=== PATIENT | male | born 1990 | race Caucasian/White ===

== ENCOUNTER 2017-04-23 22:00 | Emergency (ER) | payer SELFPAY ==
[~2017-04-23] VITALS: Ht 172.7 cm; Wt 77.2 kg
[2017-04-23 22:29] VITALS: BP 165/117
[2017-04-23 23:09] LABS: BASO # 0.1 x10^3/uL (0.0-0.2); BASO % 1 % (0-3); EOS # 0.1 x10^3/uL (0.0-0.7); EOS % 1 % (0-3); HEMOGLOBIN 15.7 g/dL (13.0-17.5); LYMPH % 31 % (24-48); MEAN CORPUSCULAR HEMOGLOBIN 29 pg (25-35); MEAN CORPUSCULAR HGB CONC 35 g/dL (31-37); MEAN CORPUSCULAR VOLUME 84 fL (79-100); MONO # 0.7 x10^3/uL (0.0-1.1); MONO % 6 % (0-9); NEUT # 8.1 x10^3uL (1.8-7.7); NEUT % 62 % (31-73); PLATELET COUNT 268 x10^3/uL (140-400); RED BLOOD COUNT 5.33 x10^6/uL (4.30-5.70); RED CELL DISTRIBUTION WIDTH 13.6 % (11.5-14.5)
[2017-04-23 23:16] LABS: CALCIUM 9.1 mg/dL (8.5-10.1); CREATININE 0.9 mg/dL (0.7-1.3)
[2017-04-23] MEDS ORDERED: METHADONE 5 MG TABLET. PO ONE (23:30)
[2017-04-23 23:43] LABS: BILIRUBIN,URINE NEG (NEG); CLARITY,URINE CLEAR; COLOR,URINE YELLOW; GLUCOSE,URINE NEG (NEG); NITRITE,URINE NEG (NEG); UROBILINOGEN,URINE 0.2 mg/dL (0.2 mg/dL)
[2017-04-23 23:44] LABS: AMPHETAMINE/METHAMPHETAMINE NEG (NEG); BACTERIA,URINE 0 /HPF (0-FEW); BARBITURATES NEG (NEG); BENZODIAZEPINES NEG (NEG); CANNABINOIDS NEG (NEG); COCAINE NEG (NEG); METHADONE NEG (NEG); OPIATES NEG (NEG); PHENCYCLIDINE NEG (NEG); RBC,URINE OCC /HPF (0-2); WBC,URINE OCC /HPF (0-4)
[2017-04-23] MEDS ORDERED: ONDA4TAB7 PO (23:58)
[2017-04-24] MEDS ORDERED: ONDANSETRON PF 4 MG/2 ML VIAL. IV ONE (00:15)
[2017-04-24] MEDS ORDERED: ONDANSETRON 4MG ODT 4TABLET STARTPACK. PO ONE (00:30)
--- NOTE | 2017-04-24 02:18 | ED.ADGEN ---
Past History Past Medical History: Other Alcohol Use: None Drug Use: None Adult General HPI HPI Patient is a 26-year-old man, history of prescription opiate abuse, who was in a methadone program for 1 year, and receiving 180 mg of methadone daily, who stopped taking his methadone 10 days ago when he moved to [place] from [place]. Patient presents with a complaint "withdrawal", states he is experiencing shaking chills, nausea and vomiting, diarrhea, generalized malaise. He has not taken any other medications or ingestions since his loss of methadone 10 days ago. He denies any other complaints, any injuries. Review of Systems Review of Systems Constitutional: Denies fever, complaining of chills and generalized malaise. Eyes: Denies change in visual acuity, redness, or eye pain [] HENT: Denies nasal congestion or sore throat [] Respiratory: Denies cough or shortness of breath [] Cardiovascular: No additional information not addressed in HPI [] GI: Abdominal pain, nausea, vomiting, diarrhea, no bloody stools. : Denies dysuria or hematuria [] Musculoskeletal: Denies back pain or joint pain [] Integument: Denies rash or skin lesions [] Neurologic: Denies headache, focal weakness or sensory changes [] Endocrine: Denies polyuria or polydipsia [] Current Medications Current Medications Current Medications Medications (Trade) Dose Ordered Sig/Sukh Start Time Stop Time Status Last Admin Dose Admin Methadone HCl (Dolophine) 60 mg 1X ONCE 04/23/17 23:30 04/23/17 23:31 DC Ondansetron HCl (Starter Pack - Zofran Odt) 1 startpack 1X ONCE 04/24/17 00:30 04/24/17 00:30 DC 04/24/17 00:17 1 STARTPACK Ondansetron HCl (Zofran) 4 mg 1X ONCE 04/24/17 00:15 04/24/17 00:16 DC 04/24/17 00:06 4 MG Allergies Allergies Allergies Coded Allergies Type Severity Reaction Last Updated Verified Penicillins Allergy Unknown 04/23/17 Yes amoxicillin Allergy Unknown 04/23/17 Yes azithromycin Allergy Unknown 04/23/17 Yes promethazine Allergy Unknown 04/23/17 Yes Physical Exam Physical Exam Constitutional: Well developed, well nourished, no acute distress, non-toxic appearance. [] HENT: Normocephalic, atraumatic, bilateral external ears normal, oropharynx moist, no oral exudates, nose normal. [] Eyes: PERRLA, EOMI, conjunctiva normal, no discharge. [] Neck: Normal range of motion, no tenderness, supple, no stridor. [] Cardiovascular:Heart rate regular rhythm, no murmur, S1, S2, rubs or gallops. [] Lungs & Thorax: Bilateral breath sounds clear to auscultation, no wheezing, rhonchi, rales. No chest or crepitus or tenderness. [] Abdomen: Bowel sounds normal, soft, mild tenderness in the epigastric region, no rebound, rigidity, no guarding, no masses, no pulsatile masses. [] Skin: Warm, dry, no erythema, no rash. [] Back: No tenderness, no CVA tenderness. [] Extremities: No tenderness, no cyanosis, no clubbing, ROM intact, no edema. Negative Homans sign. [] Neurologic: Alert and oriented X 3, normal motor function, normal sensory function, no focal deficits noted. [] Psychologic: Affect normal, judgement normal, mood normal. [] Current Patient Data Vital Signs Vital Signs Date Time Temp Pulse Resp B/P (MAP) Pulse Ox O2 Delivery O2 Flow Rate FiO2 04/23/17 22:29 98.6 99 20 97 Room Air Lab Results Laboratory Tests Test 04/23/17 22:50 04/23/17 23:16 White Blood Count 13.0 x10^3/uL (4.0-11.0) H Red Blood Count 5.33 x10^6/uL (4.30-5.70) Hemoglobin 15.7 g/dL (13.0-17.5) Hematocrit 45.0 % (39.0-53.0) Mean Corpuscular Volume 84 fL (79-100) Mean Corpuscular Hemoglobin 29 pg (25-35) Mean Corpuscular Hemoglobin Concent 35 g/dL (31-37) Red Cell Distribution Width 13.6 % (11.5-14.5) Platelet Count 268 x10^3/uL (140-400) Neutrophils (%) (Auto) 62 % (31-73) Lymphocytes (%) (Auto) 31 % (24-48) Monocytes (%) (Auto) 6 % (0-9) Eosinophils (%) (Auto) 1 % (0-3) Basophils (%) (Auto) 1 % (0-3) Neutrophils # (Auto) 8.1 x10^3uL (1.8-7.7) H Lymphocytes # (Auto) 4.0 x10^3/uL (1.0-4.8) Monocytes # (Auto) 0.7 x10^3/uL (0.0-1.1) Eosinophils # (Auto) 0.1 x10^3/uL (0.0-0.7) Basophils # (Auto) 0.1 x10^3/uL (0.0-0.2) Sodium Level 142 mmol/L (136-145) Potassium Level 4.0 mmol/L (3.5-5.1) Chloride Level 105 mmol/L (98-107) Carbon Dioxide Level 28 mmol/L (21-32) Anion Gap 9 (6-14) Blood Urea Nitrogen 12 mg/dL (8-26) Creatinine 0.9 mg/dL (0.7-1.3) Estimated GFR (Cockcroft-Gault) 102.0 Glucose Level 97 mg/dL (70-99) Calcium Level 9.1 mg/dL (8.5-10.1) Urine Collection Type Unknown Urine Color Yellow Urine Clarity Clear Urine pH 6.0 Urine Specific [place] >=1.030 Urine Protein Trace (NEG-TRACE) Urine Glucose (UA) Neg mg/dL (NEG) Urine Ketones (Stick) Neg mg/dL (NEG) Urine Blood Trace (NEG) Urine Nitrite Neg (NEG) Urine Bilirubin Neg (NEG) Urine Urobilinogen Dipstick 0.2 mg/dL (0.2 mg/dL) Urine Leukocyte Esterase Neg (NEG) Urine RBC Occ /HPF (0-2) Urine WBC Occ /HPF (0-4) Urine Squamous Epithelial Cells None /LPF Urine Bacteria 0 /HPF (0-FEW) Urine Opiates Screen Neg (NEG) Urine Methadone Screen Neg (NEG) Urine Barbiturates Neg (NEG) Urine Phencyclidine Screen Neg (NEG) Urine Amphetamine/Methamphetamine Neg (NEG) Urine Benzodiazepines Screen Neg (NEG) Urine Cocaine Screen Neg (NEG) Urine Cannabinoids Screen Neg (NEG) Urine Ethyl Alcohol Neg (NEG) EKG EKG Not indicated. Radiology/Procedures Radiology/Procedures Not indicated.[] Course & Med Decision Making Course & Med Decision Making Pertinent Labs and Imaging studies reviewed. (See chart for details) I did discuss methadone treatment options with patient, including referral to [facility] , where a methadone clinic is available where he would be able to be seen tomorrow morning. Also discussed dosing with methadone in the ED, after discussion with pharmacist Taqueria, recommendation is for the patient's dose of 180 daily milligrams to be decreased to 60 mg, due to the fact the patient has not had any methadone for the past 10 days. This was ordered, however upon further discussion with patient he states that he does not want to take any additional methadone, and he is not looking to be enrolled in another methadone program, he would like to "quit cold turkey on my own". He denies any neurologic complaints, states "my head feels clearer than it has for years". Patient states that he had been using a methadone clinic and upping his dosages , to the point were "I was half asleep and out of it all the time". He states he is afraid this will happen again if he is reenrolled in a methadone program. I discussed with patient that due to the biochemical changes, he will continue to experience withdrawal symptoms for some time, possibly several weeks. Patient states that he understands this will happen, but he does not wish to take anymore methadone or other treatment at this time. Patient was agreeable to receiving laboratory studies in the ED, as he states he has been experiencing emesis and diarrhea, laboratory studies revealed all electrolytes within normal limits, without any concerning findings identified. Patient's vital signs within normal limits as well, and he is well-appearing, with no emesis in the ED. After lengthy discussion regarding potential treatment options and patient's plan, patient is requesting Zofran, he states that this time he is only able to keep liquids down, he states that he will continue on the course without any additional methadone treatment of this time, and will return to the ED if any concerning symptoms develop. Patient received a dose of Zofran in the ED, is tolerating by mouth fluids, discharged with a starter pack and a Zofran prescription for Zofran, and addition was given contact information for [facility] in case he changes his mind, the number is [phone], along with clear and detailed return instructions and precautions. Patient voiced understanding and agreement with plan as stated, along with precautions, discharged home in stable condition with significant other with plan as above. Final Impression Final Impression [] Problems: Dragon Disclaimer Dragon Disclaimer This electronic medical record was generated, in whole or in part, using a voice recognition dictation system. Departure: Impression: Primary Impression: Methadone withdrawal Disposition: HOME, SELF-CARE Condition: IMPROVED Scripts Ondansetron Hcl (ZOFRAN) 4 Mg Tablet 4 MG PO PRN Q8HRS Y for NAUSEA, #14 Prov: KIMMY GILL DO 04/23/17 KIMMY GILL DO Apr 24, 2017 02:18
== END 2017-04-24 00:19 | disposition home or self-care (01) ==
LOC: ER 22:00
DX: F15.93 Other stimulant use, unspecified with withdrawal (principal); Z88.0 Allergy status to penicillin; Z88.1 Allergy status to other antibiotic agents; Z88.4 Allergy status to anesthetic agent
CPT/HCPCS: 36415; 80048; 80307; 81001; 85025; 96374; 99284; J2405; Q0162; G0479

== ENCOUNTER 2017-04-25 09:43 | Emergency (ER) | payer SELFPAY ==
[~2017-04-25] VITALS: Ht 172.7 cm; Wt 77.2 kg
[~2017-04-25 09:43] MED LIST: ONDA4TAB7 PO
[2017-04-25 09:55] VITALS: BP 164/86
--- NOTE | 2017-04-25 10:25 | PHYS DOC ---
General Chief Complaint: WITHDRAWL Stated Complaint: N/V; METHADONE W/DRAWAL Time Seen by MD: 09:50 Source: patient, old records Exam Limitations: no limitations Problems: History of Present Illness Initial Comments Patient is a 26-year-old man, history of prescription opiate abuse, who was in a methadone program for 1 year, and receiving 180 mg of methadone daily, who stopped taking his methadone 12 days ago when he moved to [place] from [place]. Patient presents with a complaint "withdrawal", states he is experiencing shaking chills, nausea and vomiting, diarrhea, generalized malaise. He has not taken any other medications or ingestions since his loss of methadone 10 days ago. He denies any other complaints, any injuries. Patient was seen here on April 23 for similar symptoms. At that time the patient refused to reduce dose of methadone, labs and urine studies were evaluated and the patient felt slightly better with fluids and Zofran. Patient refused to methadone on that day but has returned stating that he is still unable to sleep and has by mouth intolerance despite taking Zofran. He denies chest pain trouble breathing headache or focal neurologic deficit, no new symptoms from his last ED visit. He is requesting the decreased dose offered 2 days ago and states he will present to the methadone clinic as he was previously advised. Patient understands that this is a one-time offer, if he received the medication today and does not follow up the methadone clinic no further opiates will be prescribed to this patient in the ED unless deemed absolutely necessary and emergent by the attending physician. ED note from April 23 [facility] emergency department encounter reviewed by me in detail. ED vital signs are stable blood pressure improved from 2 days ago, heart rate 104 bpm patient is nervous and smoked a cigarette immediately prior to being seen. Patient states that "I killed my best friend in high school drinking and driving " and I don't touch alcohol. When I turn 18 I began using PCP and prescription opiates. I attend AA meetings Timing/Duration: getting worse Severity: severe Modifying Factors: improves with medication Associated Symptoms: malaise, nausea/vomiting, weakness Allergies: Coded Allergies: Penicillins (Verified Allergy, Unknown, 04/23/17) amoxicillin (Verified Allergy, Unknown, 04/23/17) azithromycin (Verified Allergy, Unknown, 04/23/17) promethazine (Verified Allergy, Unknown, 04/23/17) Past Medical History Medical History: other (opiate dependence) Surgical History: noncontributory Social History Smoker: cigarettes Alcohol: none Drugs: other (opiates) Review of Systems Constitutional: denies chills, diaphoresis, denies fever, malaise, weakness Respiratory: denies cough, denies shortness of breath, denies wheezing Cardiovascular: denies chest pain, denies palpitations, denies syncope Gastrointestinal: see HPI Genitourinary: denies dysuria, denies frequency, denies hematuria Musculoskeletal: denies joint swelling, denies muscle stiffness, denies neck pain Psychiatric/Neurological: denies headache, denies numbness, denies paresthesia , denies seizure, denies weakness Hematologic/Lymphatic: denies blood clots, denies easy bleeding, denies easy bruising Physical Exam General Appearance: no apparent distress (disheveled) Eyes: bilateral eye normal inspection, bilateral eye PERRL, bilateral eye EOMI Ear, Nose, Throat: hearing grossly normal, normal ENT inspection, normal pharynx (mucous membranes mildly dry) Neck: non-tender, supple Respiratory: normal breath sounds, no respiratory distress Cardiovascular: normal peripheral pulses, regular rate, rhythm Gastrointestinal: soft (nondistended, abdominal muscle tenderness likely secondary to vomiting, negative Ang and McBurney bowel sounds are noted no masses) Extremities: non-tender, normal inspection Neurologic/Psychiatric: 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 Per prior ED note pharmacy was consulted and pt's prior dose of 180 daily milligrams to be decreased to 60 mg, due to the fact the patient has not had any methadone for the past 12 days. This was ordered, pt placed on monitoring pulse-ox and BP. I discussed temporal nature of expected symptom relief with today's dosing and that due to the biochemical changes, he will continue to experience prolonged withdrawal symptoms for some time, possibly several weeks. I had a lengthy discussion regarding potential treatment options and patient's plan, as well as once again notifying pt that no future narcotic pain medications will be prescribed to him from this ED. Pt was given contact information for [facility] to follow up per his request, the number is [phone], along with clear and detailed return instructions and precautions. Patient voiced understanding and agreement with plan as stated, along with precautions, discharged home in stable condition with significant other with plan as above. 1131: Patient rechecked she's feeling much better sitting up watching football television. His abdomen feels better he feels like he can tolerate by mouth. He is requesting discharge. Departure Time of Disposition: 11:27 Disposition: 01 HOME, SELF-CARE Diagnosis: methadone withdrawal, tobaccoism, h/o opiate/PCP a Condition: IMPROVED Patient Instructions: Opiate Dependence, Smoking, You Can Quit, [id number], Substance Abuse-Brief Additional Instructions: No driving or operating machinery today sedative medications. Work on stopping smoking, seek medical assistance if necessary. Continue to go to Alcoholics Anonymous meetings and consider Narcotics Anonymous meetings as well. Continue to abstain from alcohol. Aggressive hydration with Gatorade or water. Consider outpatient counseling or the guidance Center (ED staff will give you contact information) to help deal with some of the events from the past. ED staff has provided U with information regarding [facility], [facility], and any drug rehabilitation/inpatient detox center materials we have. As discussed no further opiates will be prescribed unless indication of extreme emergent situations. Call methadone program today: [phone]. Return to ED with new or changing symptoms. Departure Disposition: 01 HOME, SELF-CARE Diagnosis: methadone withdrawal, tobaccoism, h/o opiate/PCP a Condition: IMPROVED Patient Instructions: Opiate Dependence, Smoking, You Can Quit, [id number], Substance Abuse-Brief Additional Instructions: No driving or operating machinery today sedative medications. Work on stopping smoking, seek medical assistance if necessary. Continue to go to Alcoholics Anonymous meetings and consider Narcotics Anonymous meetings as well. Continue to abstain from alcohol. Aggressive hydration with Gatorade or water. Consider outpatient counseling or the guidance Center (ED staff will give you contact information) to help deal with some of the events from the past. ED staff has provided U with information regarding [facility], [facility], and any drug rehabilitation/inpatient detox center materials we have. As discussed no further opiates will be prescribed unless indication of extreme emergent situations. Call methadone program today: [phone]. Return to ED with new or changing symptoms. AZUL RAM DO Apr 25, 2017 10:25
[2017-04-25] MEDS: ONDANSETRON PF 4 MG/2 ML VIAL. IM ONE (10:51)
[2017-04-25] MEDS: METHADONE 5 MG TABLET. PO ONE (10:52)
== END 2017-04-25 11:45 | disposition home or self-care (01) ==
LOC: ER 09:43
DX: F15.93 Other stimulant use, unspecified with withdrawal (principal); F17.210 Nicotine dependence, cigarettes, uncomplicated; F11.10 Opioid abuse, uncomplicated; Z88.0 Allergy status to penicillin; Z88.1 Allergy status to other antibiotic agents; Z88.8 Allergy status to other drugs, medicaments and biological substances
CPT/HCPCS: 96372; 99283; J2405

== ENCOUNTER 2019-02-23 23:49 | Emergency (ER) | payer OTHER ==
[~2019-02-23] VITALS: Ht 170.2 cm; Wt 68.0 kg
[2019-02-23 23:51] VITALS: BP 124/77
[2019-02-24] MEDS ORDERED: MVI, ADULT NO.4 WITH VIT K 10 ML, FOLIC ACID INJ 1 MG, THIAMINE INJ 100 MG in IV NORMAL... IV SCH ×4 (00:15)
[2019-02-24] MEDS ORDERED: MVI, ADULT NO.4 WITH VIT K 10 ML, FOLIC ACID SYRINGE for ER 1 MG, THIAMINE INJ 100 MG i... IV ONE ×4 (00:30)
[2019-02-24] MEDS ORDERED: IV NORMAL SALINE 1,000ML 1,000 ML IV ONE (00:30)
[2019-02-24] MEDS ORDERED: THIAMINE 200 MG/2 ML VIAL. IV ONE (00:40)
[2019-02-24] MEDS ORDERED: FOLIC ACID 5 MG/ML SYRINGE for ER IV ONE (00:41)
[2019-02-24] MEDS ORDERED: MVI, ADULT NO.4 WITH VIT K 10 ML VIAL IV ONE (00:41)
--- NOTE | 2019-02-24 00:50 | PHYS DOC ---
Past History Past Medical History: No Pertinent History Past Surgical History: No Surgical History Smoking: Cigarettes, Greater than 1 pack/day Alcohol Use: Heavy Drug Use: Methamphetamine Adult General Chief Complaint Chief Complaint: SUICDAL IDEATION HPI HPI 28 y/o male presents via EMS with report of increased paranoia and suicidal ideation which started today. Patient is homeless. Patient reports he abuses methamphetamines. Reports last used at 1530 today. Patient reports some people from the "[employer]" want to kill him. Reports they have killed local paramedics and are coming to transfer him and we won't even know it is them. Denies current suicidal ideation but reports had thoughts earlier today. Patient reports he has a plan to "swallow razor blades". Patient reports has had prior thoughts when he was a kid. Patient reports he has been using methamphetamines intermittently for the last month. Review of Systems Review of Systems Constitutional: Denies fever or chills Eyes: Denies redness or eye pain HENT: Denies nasal congestion or sore throat Respiratory: Denies cough or shortness of breath Cardiovascular: Denies chest pain or palpitations GI: Denies abdominal pain, nausea, or vomiting : Denies dysuria or hematuria Musculoskeletal: Denies back pain or joint pain Integument: Denies rash or skin lesions Neurologic: Denies headache, focal weakness or sensory changes Psychiatric: Reports paranoia and suicidal ideation Complete systems were reviewed and found to be within normal limits, except as documented in this note. Current Medications Current Medications Current Medications Medications (Trade) Dose Ordered Sig/[facility] Start Time Stop Time Status Last Admin Dose Admin Multivitamins/ Minerals 10 ml/ Folic Acid 1 mg/ Thiamine HCl 100 mg/Sodium Chloride 1,011.1 ml @ 1,000 mls/ hr 1X ONCE 02/24/19 00:30 02/24/19 01:30 Sodium Chloride 1,000 ml @ 1,000 mls/hr 1X ONCE 02/24/19 00:30 02/24/19 01:29 Allergies Allergies Allergies Coded Allergies Type Severity Reaction Last Updated Verified Penicillins Allergy Unknown 04/23/17 Yes amoxicillin Allergy Unknown 04/23/17 Yes azithromycin Allergy Unknown 04/23/17 Yes promethazine Allergy Unknown 04/23/17 Yes Physical Exam Physical Exam Constitutional: Well developed, mild dehydration, no acute distress, non-toxic appearance HENT: Normocephalic, atraumatic, oropharynx tacky Eyes: PERRL, EOMI, conjunctiva normal, no discharge, no nystagmus noted Neck: Normal range of motion, no tenderness, supple Cardiovascular: Heart rate tachycardic, regular rhythm Lungs & Thorax: Bilateral breath sounds clear to auscultation, scattered wheezing Abdomen: Soft, no tenderness Skin: Warm, dry, no erythema, no rash, increased sun exposure to face Back: No tenderness, no CVA tenderness Extremities: No tenderness, ROM intact, no edema Neurologic: Alert and oriented X 3, normal motor function, normal sensory function, no focal deficits noted Psychologic: Affect agitated, judgement abnormal, paranoid Current Patient Data Vital Signs Vital Signs Date Time Temp Pulse Resp B/P (MAP) Pulse Ox O2 Delivery O2 Flow Rate FiO2 02/23/19 23:51 99.0 121 22 98 Room Air EKG EKG @0020 Sinus tachycardia at 123bpm, NO ST elevation. QRS 104ms, QT / QTc 314/455ms Radiology/Procedures Radiology/Procedures [] Course & Med Decision Making Course & Med Decision Making Pertinent Lab studies reviewed. (See chart for details) Patient presents via EMS with report of increased paranoia and suicidal ideation which started today. Patient is homeless. Patient abuses methamphetamines. Reports last used at 1530 today. Patient reports some people from the "[employer]" want to kill him. Reports they have killed local paramedics and are coming to transfer him and we won't even know it is them. Patient with obvious paranoia and delusions. Denies current suicidal ideation but reports had thoughts earlier today. Patient reports he has a plan to "swallow razor blades". Labs obtained and posted to chart. Hemoglobin concentrated and BUN/Creat elevated concerning for dehydration. IVF hydration given including NS bolus and Banana bag bolus. EKG stable. Patient offered medication to help with his agitation which patient declined. UA with signs of infection. Empiric antibiotic given. 0140- Patient pulled out IVs and ran out of department. Patient voiced no suicidal ideation. Reports he was concerned that someone was after him. Patient did return to ED but wants to leave. Again denies current suicidal idea tion. Patient without criteria to hold against his will. Recommended that patient have psychiatric evaluation for resources to further treat and evaluate patient. Patient reports concern that the psychiatrist will "have long red hair" and be here to kill him. Patient does not want psychiatric assessment at this time. Patient therefore leaving against medical advice. Discharge paper work provided. Patient advised for close outpatient follow-up with PCP. Discussed findings and plan with patient, who acknowledges understanding and agreement. Vanessa Disclaimer Dragon Disclaimer This electronic medical record was generated, in whole or in part, using a voice recognition dictation system. Departure Departure: Impression: Primary Impression: Paranoia (psychosis) Additional Impressions: Methamphetamine abuse Suicidal ideation Dehydration UTI (urinary tract infection) Left against medical advice Disposition: AGAINST MEDICAL ADVICE Condition: GUARDED Referrals: PCP,NO (PCP) Patient Instructions: Dehydration, Adult, [id number], Discharge Against Medical Advice, Methamphetamine Abuse, Complications, Paranoia, Suicidal Feelings, How to Help Yourself, Urinary Tract Infection, [id number] Scripts Cephalexin (KEFLEX) 500 Mg Capsule 1 CAP PO TID for UTI, #21 CAP Prov: ANNA COSBY DO 02/24/19 Problem Qualifiers Additional Impressions: UTI (urinary tract infection) Urinary tract infection type: acute cystitis Hematuria presence: without hematuria Qualified Codes: N30.00 - Acute cystitis without hematuria ANNA COSBY DO Feb 24, 2019 00:50
[2019-02-24 01:26] LABS: BASO # 0.1 x10^3/uL (0.0-0.2); BASO % 1 % (0-3); EOS # 0.1 x10^3/uL (0.0-0.7); EOS % 1 % (0-3); HEMATOCRIT 53.8 % (39.0-53.0); HEMOGLOBIN 18.5 g/dL (13.0-17.5); LYMPH # 3.2 x10^3/uL (1.0-4.8); LYMPH % 21 % (24-48); MEAN CORPUSCULAR HEMOGLOBIN 30 pg (25-35); MEAN CORPUSCULAR HGB CONC 34 g/dL (31-37); MEAN CORPUSCULAR VOLUME 89 fL (79-100); MONO # 1.6 x10^3/uL (0.0-1.1); MONO % 10 % (0-9); NEUT # 10.7 x10^3uL (1.8-7.7); NEUT % 68 % (31-73); PLATELET COUNT 223 x10^3/uL (140-400); RED BLOOD COUNT 6.07 x10^6/uL (4.30-5.70); RED CELL DISTRIBUTION WIDTH 13.2 % (11.5-14.5); WHITE BLOOD COUNT 15.7 x10^3/uL (4.0-11.0)
[2019-02-24 01:34] LABS: BARBITURATES NEG (NEG); BENZODIAZEPINES NEG (NEG); CANNABINOIDS POS (NEG); COCAINE NEG (NEG); METHADONE NEG (NEG); OPIATES NEG (NEG); PHENCYCLIDINE NEG (NEG)
[2019-02-24 01:37] LABS: MAGNESIUM 2.3 mg/dL (1.8-2.4)
[2019-02-24 01:38] LABS: BACTERIA,URINE FEW /HPF (0-FEW); BILIRUBIN,URINE NEG (NEG); CLARITY,URINE HAZY; COLOR,URINE STRAW; GLUCOSE,URINE NEG (NEG); NITRITE,URINE POS (NEG); RBC,URINE OCC /HPF (0-2); SPERM,URINE PRESENT /HPF; SQUAMOUS EPITHELIAL CELL,UR FEW /LPF; UROBILINOGEN,URINE 1 mg/dL (0.2 mg/dL)
[2019-02-24 01:40] LABS: AMPHETAMINE/METHAMPHETAMINE POS (NEG)
[2019-02-24 01:40] LABS: SALIC 6.5 mg/dL (2.8-20.0)
[2019-02-24 01:41] LABS: ACETAMIN < 2.0 mcg/mL (10-30); ETHANOL < 10 mg/dL (0-10)
[2019-02-24 01:50] LABS: % BANDS 3 % (0-9); % EOS 2 % (0-5); % LYMPHS 20 % (24-48); % MONOS 5 % (0-10); % SEGS 70 % (35-66); PLT ESTIMATE ADEQUATE (ADEQUATE)
[2019-02-24] MEDS ORDERED: CEPHALEXIN 250 MG CAPSULE ONE (01:53)
[2019-02-24] MEDS ORDERED: CEPH-264 PO (01:54)
[2019-02-24] MEDS ORDERED: CEPHALEXIN 250 MG CAPSULE PO ONE (02:00)
[2019-02-24 02:19] LABS: ALBUMIN 4.9 g/dL (3.4-5.0); ALBUMIN/GLOBULIN RATIO 1.4 (1.0-1.7); CALCIUM 10.1 mg/dL (8.5-10.1); CREATININE 2.1 mg/dL (0.7-1.3); GFR 37.8; POTASSIUM 3.1 mmol/L (3.5-5.1); TOTAL BILIRUBIN 1.3 mg/dL (0.2-1.0); TOTAL PROTEIN 8.3 g/dL (6.4-8.2)
--- NOTE | 2019-02-24 11:00 | EKG ---
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
== END 2019-02-24 02:00 | disposition left against medical advice (07) ==
LOC: ER 23:49
DX: F22 Delusional disorders (principal); R45.851 Suicidal ideations; E86.0 Dehydration; N30.00 Acute cystitis without hematuria; F15.10 Other stimulant abuse, uncomplicated; F17.210 Nicotine dependence, cigarettes, uncomplicated; Z59.0 Homelessness; Z88.0 Allergy status to penicillin; Z88.1 Allergy status to other antibiotic agents; Z88.8 Allergy status to other drugs, medicaments and biological substances
CPT/HCPCS: 36415; 80053; 80307; 80329; 81001; 82550; 83605; 83690; 83735; 85007; 85025; 87086; 93005; 96365; 99285; G0480; 82003; J7030

== ENCOUNTER 2020-09-08 22:34 | Emergency (ER) | payer MEDICAID ==
[~2020-09-08] VITALS: Ht 172.7 cm; Wt 79.8 kg
[~2020-09-08 22:34] MED LIST changes: +CEPH-264 PO
--- NOTE | 2020-09-08 22:57 | PHYS DOC ---
Past History Past Medical History: No Pertinent History Past Surgical History: No Surgical History Smoking: Cigarettes, Greater than 1 pack/day Alcohol Use: Heavy Drug Use: Methamphetamine Adult General [facility] HPI Patient is a 29-year-old male who presents with head injury. States he was skateboarding about 2 hours before coming to the emergency department, showing his son Christopher. States that he fell and hit his head. States he thinks he may have passed out for a few seconds per his family. States that he is got some pain right at the site, on his right forehead, 5 out of 10, dull in nature with no radiation. Denies any changes in vision, neck pain chest or shoulder pain, shortness of breath, abdominal pain. Denies any numbness/weakness/tingling. States he is able to walk without issue. States the only reason he is came because his wanted him to come to look at the wound. States he is up-to-date on his tetanus status. Review of Systems Review of Systems Review of systems otherwise unremarkable except for an noted in HPI. Allergies Allergies Allergies Coded Allergies Type Severity Reaction Last Updated Verified Penicillins Allergy Unknown 04/23/17 Yes amoxicillin Allergy Unknown 04/23/17 Yes azithromycin Allergy Unknown 04/23/17 Yes promethazine Allergy Unknown 04/23/17 Yes Physical Exam Physical Exam Constitutional: Well developed, well nourished, no acute distress, non-toxic appearance. [] HENT: Patient with right frontal/forehead contusion and abrasion with probable small hematoma. No obvious skull fractures, but is tender in the area. Eyes: PERRLA, EOMI, conjunctiva normal, no discharge. [] Neck: Normal range of motion, no tenderness, supple, no stridor. [] Cardiovascular:Heart rate regular rhythm, no murmur [] Skin: Warm, dry, no erythema, no rash. [] Back: No tenderness, Extremities: No tenderness, no cyanosis, no clubbing, ROM intact, no edema. [] Neurologic: Alert and oriented X 3, normal motor function, normal sensory function, no focal deficits noted, cranial nerves intact, ihlk-tx-olts/finger-t o-nose normal, able to ambulate without issue. [] Psychologic: Affect normal, judgement normal, mood normal. [] EKG EKG [] Radiology/Procedures Radiology/Procedures [] Heart Score Risk Factors: Risk Factors: DM, Current or recent (<one month) smoker, HTN, HLP, family history of CAD, obesity. Risk Scores: Risk Factors: DM, Current or recent (<one month) smoker, HTN, HLP, family history of CAD, obesity. Course & Med Decision Making Course & Med Decision Making Patient is a 29-year-old male who presents with head injury after falling off a skateboard Vital signs not concerning. Physical exam noted above. Patient alert and oriented with no focal neurologic deficits. No cervical/thoracic/lumbar spinal tenderness. Full range of motion in the neck without pain. Up-to-date on tetanus vaccination. Given Tylenol and ice pack. CT with no acute fractures or bleed. 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 Discussed this pathology with patient and advised follow-up with MRI and discuss with PCP. Discussed all findings with patient and advised on pain management at home and given education on concussion management. Advised to follow-up first thing Thursday morning with his primary care physician to discuss ED visit and set up follow-up if needed. Advised to come back to the emergency department if he had any new or concerning symptoms as discussed. Patient grateful, verbalized understanding and agreed with plan of discharge. [] Dragon Disclaimer Dragon Disclaimer This electronic medical record was generated, in whole or in part, using a voice recognition dictation system. Departure Departure: Impression: Primary Impression: Concussion Additional Impressions: Contusion Abrasion Chiari I malformation Referrals: STACY MELO MD Patient Instructions: Abrasion, [id number], Concussion and Brain Injury, [id number], Contusion, [id number]-io-[id number] Additional Instructions: Please read all the attached information on your diagnoses and management at home. Please use Tylenol, ibuprofen and ice as needed at home for pain control. Please follow-up with your primary care physician as soon as you can to update on ED visit and set up a post ER follow-up visit. Please come back to the ED with any new or concerning symptoms. Problem Qualifiers CINDI JOEL MD Sep 08, 2020 22:57
--- NOTE | 2020-09-08 23:19 | RAD ---
CT head without contrast PQRS statement: CT scans at this facility use dose reduction including either automated exposure cont rol, iterative reconstructions, and /or weight based radiation dosing via mA and kV modification when appropriate to reduce radiation dose to as low as reasonably achievable. HISTORY: Skateboarding accident, hit right side of forehead, fell and hit head, syncope, right fronta l contusion. FINDINGS: Cerebellar tonsil herniation below the foramen magnum with mild crowding of the brainstem, tonsils extend down to the C1 lamina typical of Chiari I malformation. No brain swelling or mass effe ct evident, basilar cisterns patent. Normal size of the cervical spine ventricles. No intracranial he morrhage, mass, hydrocephalus, extra-axial fluid collections or infarction. No acute ischemic changes . Mild right frontal scalp soft tissue edema and swelling. No frontal scalp hematoma. No fracture of the skull base or calvarium. Orbits and mastoids are unremarkable. IMPRESSION: No acute intracranial CT abnormality. Electronically signed by: Tawanda Young MD (09/08/2020 11:10 PM) [facility]
[2020-09-08] MEDS ORDERED: ONDANSETRON ODT 4 MG TAB.RAPDIS PO ONE (23:30)
[2020-09-08] MEDS ORDERED: ACETAMINOPHEN 500 MG TABLET PO ONE (23:30)
[2020-09-08 23:40] VITALS: BP 114/77
== END 2020-09-08 23:45 | disposition home or self-care (01) ==
LOC: ER 22:34
DX: S06.0X9A Concussion with loss of consciousness of unspecified duration, initial encounter (principal); F17.210 Nicotine dependence, cigarettes, uncomplicated; F10.20 Alcohol dependence, uncomplicated; Z88.0 Allergy status to penicillin; Z88.1 Allergy status to other antibiotic agents; Z88.8 Allergy status to other drugs, medicaments and biological substances; Y90.9 Presence of alcohol in blood, level not specified; W18.09XA Striking against other object with subsequent fall, initial encounter; Y93.51 Activity, roller skating (inline) and skateboarding; Y92.89 Other specified places as the place of occurrence of the external cause; Y99.8 Other external cause status
CPT/HCPCS: 70450; 99284; Q0162

== ENCOUNTER 2021-04-26 01:25 | Emergency (ER) | payer MEDICAID ==
[~2021-04-26] VITALS: Ht 172.7 cm; Wt 77.3 kg
--- NOTE | 2021-04-26 01:45 | EKG ---
[address] [address] Test Date: 2021-04-26 Test Time: 01:26:55 Pat Name: FRANKIE DONIS Department: Room: Gender: M [employer]: Jay : 1990 Requested By: CLIVE PONCE Order Number: [id number] Reading MD: Measurements Intervals [place] Rate: 109 P: 56 WV: 124 QRS: 45 QRSD: 92 T: 34 QT: 338 QTc: 457 Interpretive Statements SINUS TACHYCARDIA NO SPECIFIC ECG ABNORMALITIES RI6.02 No previous ECG available for comparison
[2021-04-26] MEDS ORDERED: PANTOPRAZOLE IV 40 MG VIAL. IVP ONE (02:00)
[2021-04-26] MEDS ORDERED: IV NORMAL SALINE 1,000ML 1,000 ML IV ONE (02:00)
[2021-04-26] MEDS ORDERED: FAMOTIDINE 20 MG/2 ML VIAL IVP ONE (02:00)
[2021-04-26] MEDS ORDERED: ONDANSETRON PF 4 MG/2 ML VIAL. IVP ONE (02:00)
--- NOTE | 2021-04-26 02:01 | PHYS DOC ---
Past History Past Medical History: No Pertinent History, Other Additional Past Medical Histor: hx of depression--suicidal ideation in 02/2019 Past Surgical History: No Surgical History Smoking: Cigarettes, Greater than 1 pack/day Alcohol Use: Sober Drug Use: Methamphetamine General Adult EDM: Chief Complaint: CHEST PAIN HPI: HPI: 30-year-old male presents with chest pain. The patient had an argument with his significant other. He left the house and went to a local park. While he was there, he had a sharp chest pain that lasted only a few seconds. He had several of these episodes in a row. He also had some shortness of breath with that. This was concerning to him so he called an ambulance. Patient has no significant cardiopulmonary history. He is currently pain-free but feels like his heart rate is elevated. He denies fever or chills. Review of Systems: Review of Systems: Constitutional: Denies fever or chills Eyes: Denies change in visual acuity HENT: Denies nasal congestion or sore throat Respiratory: Denies cough or shortness of breath Cardiovascular: Denies chest pain or edema GI: Denies abdominal pain, nausea, vomiting, bloody stools or diarrhea : Denies dysuria Musculoskeletal: Denies back pain or joint pain Integument: Denies rash Neurologic: Denies headache, focal weakness or sensory changes Endocrine: Denies polyuria or polydipsia Lymphatic: Denies swollen glands Psychiatric: Denies depression or anxiety Current Medications: Current Meds: Current Medications Medications (Trade) Dose Ordered Sig/Sukh Start Time Stop Time Status Last Admin Dose Admin Famotidine (Pepcid Vial) 20 mg 1X ONCE 04/26/21 02:00 04/26/21 02:01 Ondansetron HCl (Zofran) 4 mg 1X ONCE 04/26/21 02:00 04/26/21 02:01 Pantoprazole Sodium (Protonix Vial) 40 mg 1X ONCE 04/26/21 02:00 04/26/21 02:01 Sodium Chloride 1,000 ml @ 1,000 mls/hr 1X ONCE 04/26/21 02:00 04/26/21 02:59 Allergies: Allergies: Allergies Coded Allergies Type Severity Reaction Last Updated Verified Penicillins Allergy Intermediate 09/08/20 Yes amoxicillin Allergy Intermediate 09/08/20 Yes azithromycin Allergy Intermediate 09/08/20 Yes promethazine Allergy Intermediate 09/08/20 Yes Physical Exam: PE: Constitutional: Well developed, well nourished, no acute distress, non-toxic appearance. [] HENT: Normocephalic, atraumatic, bilateral external ears normal, oropharynx moist, no oral exudates, nose normal. [] Eyes: PERRLA, EOMI, conjunctiva normal, no discharge. [] Neck: Normal range of motion, no tenderness, supple, no stridor. [] Cardiovascular: Heart rate 109, regular rhythm, no murmur [] Lungs & Thorax: Bilateral breath sounds clear to auscultation [] Abdomen: Bowel sounds normal, soft, no tenderness, no masses, no pulsatile masses. [] Skin: Warm, dry, no erythema, no rash. [] Back: No tenderness, no CVA tenderness. [] Extremities: No tenderness, no cyanosis, no clubbing, ROM intact, no edema. [] Neurologic: Alert and oriented X 3, normal motor function, normal sensory function, no focal deficits noted. [] Psychologic: Affect normal, judgement normal, mood anxious. [] EKG: EKG: Sinus rhythm, rate 109, normal axis, no ST elevation or depression. [] Radiology/Procedures: Radiology/Procedures: [] Heart Score: C/O Chest Pain: Yes HEART Score for Chest Pain: HEART Score for Chest Pain Response (Comments) Value History Slighlty/Non-Suspicious 0 ECG Normal 0 Age < 45 0 Risk Factors 1 or 2 Risk Factors 1 Troponin < Normal Limit 0 Total 1 Risk Factors: Risk Factors: DM, Current or recent (<one month) smoker, HTN, HLP, family history of CAD, obesity. Risk Scores: Score 0 - 3: 2.5% MACE over next 6 weeks - Discharge Home Score 4 - 6: 20.3% MACE over next 6 weeks - Admit for Clinical Observation Score 7 - 10: 72.7% MACE over next 6 weeks - Early Invasive Strategies Course & Med Decision Making: Course & Med Decision Making Pertinent Labs and Imaging studies reviewed. (See chart for details) The patient's labs are significant for an elevated white count. He is a bit tachycardic so I have given him 1 L normal saline. His urinalysis is negative for infection. His urine drug screen is positive for marijuana and alcohol. This is likely contributing to his elevated heart rate and odd demeanor. His chest x-ray is negative for pneumonia. He is stable for discharge at this time. [] Dragon Disclaimer: Dragon Disclaimer: This electronic medical record was generated, in whole or in part, using a voice recognition dictation system. Departure Departure: Impression: Primary Impression: Chest pain Qualified Codes: R07.9 - Chest pain, unspecified Additional Impressions: Marijuana use Alcohol intoxication Qualified Codes: F10.920 - Alcohol use, unspecified with intoxication, uncomplicated Disposition: 01 HOME / SELF CARE / HOMELESS Condition: STABLE Referrals: PCPKELI (PCP) Patient Instructions: Chest Pain (Nonspecific), Bapj-zy-[id number] CLIVE PONCE DO Apr 26, 2021 02:01
[2021-04-26 02:21] LABS: BASO # 0.1 x10^3/uL (0.0-0.2); BASO % 1 % (0-3); EOS # 0.1 x10^3/uL (0.0-0.7); EOS % 0 % (0-3); HEMATOCRIT 47.5 % (39.0-53.0); HEMOGLOBIN 16.5 g/dL (13.0-17.5); LYMPH # 2.4 x10^3/uL (1.0-4.8); LYMPH % 15 % (24-48); MEAN CORPUSCULAR HEMOGLOBIN 30 pg (25-35); MEAN CORPUSCULAR HGB CONC 35 g/dL (31-37); MEAN CORPUSCULAR VOLUME 87 fL (79-100); MONO # 0.9 x10^3/uL (0.0-1.1); MONO % 6 % (0-9); NEUT # 12.7 x10^3uL (1.8-7.7); NEUT % 79 % (31-73); PLATELET COUNT 201 x10^3/uL (140-400); RED BLOOD COUNT 5.43 x10^6/uL (4.30-5.70); RED CELL DISTRIBUTION WIDTH 13.3 % (11.5-14.5); WHITE BLOOD COUNT 16.1 x10^3/uL (4.0-11.0)
[2021-04-26 02:28] LABS: CALCIUM 9.2 mg/dL (8.5-10.1); GFR 87.7; POTASSIUM 3.7 mmol/L (3.5-5.1)
[2021-04-26 02:30] LABS: BARBITURATES NEG (NEG); BENZODIAZEPINES NEG (NEG); CANNABINOIDS POS (NEG); COCAINE NEG (NEG); METHADONE NEG (NEG); OPIATES NEG (NEG); PHENCYCLIDINE NEG (NEG)
[2021-04-26 02:31] LABS: BACTERIA,URINE 0 /HPF (0-FEW); BILIRUBIN,URINE NEG (NEG); CLARITY,URINE CLEAR; COLOR,URINE YELLOW; GLUCOSE,URINE NEG (NEG); NITRITE,URINE NEG (NEG); RBC,URINE 0 /HPF (0-2); SQUAMOUS EPITHELIAL CELL,UR OCC /LPF; UROBILINOGEN,URINE 0.2 mg/dL (0.2 mg/dL); WBC,URINE OCC /HPF (0-4)
[2021-04-26 02:34] LABS: ALBUMIN 5.2 g/dL (3.4-5.0); ALBUMIN/GLOBULIN RATIO 2.4 (1.0-1.7); TOTAL BILIRUBIN 0.5 mg/dL (0.2-1.0); TOTAL PROTEIN 7.4 g/dL (6.4-8.2)
[2021-04-26 02:36] LABS: AMPHETAMINE/METHAMPHETAMINE NEG (NEG)
[2021-04-26 02:56] LABS: % BANDS 3 % (0-9); % EOS 1 % (0-5); % LYMPHS 19 % (24-48); % MONOS 1 % (0-10); % SEGS 76 % (35-66); PLT ESTIMATE ADEQUATE (ADEQUATE)
--- NOTE | 2021-04-26 03:37 | RAD ---
EXAMINATION: Chest radiograph. VIEWS: Single AP view of the chest COMPARISON: None INDICATION:30 years, Male, chest pain. FINDINGS: Normal cardiomediastinal silhouette. No focal consolidation. No pleural effusion or pneumothorax. No acute osseous process. IMPRESSION: No acute cardiopulmonary process. Electronically signed by: Husam Campbell DO (04/26/2021 3:35 AM) [facility]
[2021-04-26 03:45] VITALS: BP 140/82
== END 2021-04-26 03:50 | disposition home or self-care (01) ==
LOC: ER 01:25
DX: R07.89 Other chest pain (principal); F12.90 Cannabis use, unspecified, uncomplicated; F10.920 Alcohol use, unspecified with intoxication, uncomplicated; F17.290 Nicotine dependence, other tobacco product, uncomplicated; Z59.0 Homelessness; Z88.1 Allergy status to other antibiotic agents; Z88.0 Allergy status to penicillin; Z88.8 Allergy status to other drugs, medicaments and biological substances
CPT/HCPCS: 36415; 71045; 80053; 80307; 81001; 84484; 85007; 85025; 93005; 96361; 96374; 96375; 99285; C9113; J2405; J3490; J7030

== ENCOUNTER 2021-07-07 13:56 | Emergency (ER) | payer MEDICAID ==
[~2021-07-07] VITALS: Ht 172.7 cm; Wt 78.7 kg
[2021-07-07 13:56] VITALS: BP 154/89
[2021-07-07] MEDS ORDERED: ONDANSETRON PF 4 MG/2 ML VIAL. IVP ONE (14:15)
[2021-07-07] MEDS ORDERED: IV NORMAL SALINE 1,000ML 1,000 ML IV SCH (14:15)
--- NOTE | 2021-07-07 14:23 | PHYS DOC ---
Past History Past Medical History: No Pertinent History, Other Additional Past Medical Histor: hx of depression--suicidal ideation in 02/2019 Past Surgical History: No Surgical History Smoking: Cigarettes, Greater than 1 pack/day Alcohol Use: Occasionally Drug Use: Methamphetamine General Adult EDM: Chief Complaint: ABDOMINAL PAIN HPI: HPI: Patient is a 30-year-old male who presents to the emergency department for generalized abdominal pain worse in his right lower quadrant that started approximately a month ago. Patient currently rates his pain 5 out of 10. He reports he has been taking Pepcid and Nexium. It is worse after eating. Patient is also reporting increased gas, burping and reflux, nausea and vomiting. He reports that he vomited 3 times today. Patient denies any diarrhea, urinary symptoms, flank pain, fevers or blood in his vomit or stools currently. Patient reports he has a history of pancreatitis. He denies any alcohol, drug use or gallbladder issues. Review of Systems: Review of Systems: Constitutional: See HPI GI: See HPI : See HPI Musculoskeletal: See HPI Allergies: Allergies: Allergies Coded Allergies Type Severity Reaction Last Updated Verified Penicillins Allergy Intermediate 09/08/20 Yes amoxicillin Allergy Intermediate 09/08/20 Yes azithromycin Allergy Intermediate 09/08/20 Yes promethazine Allergy Intermediate 09/08/20 Yes Physical Exam: PE: Constitutional: Well developed, well nourished, no acute distress, non-toxic appearance. [] HENT: Normocephalic, atraumatic, bilateral external ears normal, oropharynx moist, no oral exudates, nose normal. [] Eyes: PERRL, EOMI, conjunctiva normal, no discharge. [] Neck: Normal range of motion, no stridor Cardiovascular:Heart rate regular rhythm, no murmur [] Lungs & Thorax: Bilateral breath sounds clear to auscultation [] Abdomen: Bowel sounds normal, soft, patient is reporting tenderness with palpation of all 4 quadrants, negative Ang sign, no masses, no pulsatile masses. [] Skin: Warm, dry, no erythema, no rash. [] Back: No tenderness, no CVA tenderness. [] Extremities: No tenderness, no cyanosis, no clubbing, ROM intact, no edema. [] Neurologic: Alert and oriented X 3, normal motor function, normal sensory function, no focal deficits noted. [] Psychologic: Affect normal, judgement normal, mood normal. [] Current Patient Data: Labs: Laboratory Tests Test 07/07/21 14:26 07/07/21 14:40 White Blood Count 10.1 x10^3/uL Red Blood Count 5.22 x10^6/uL Hemoglobin 16.0 g/dL Hematocrit 46.7 % Mean Corpuscular Volume 89 fL Mean Corpuscular Hemoglobin 31 pg Mean Corpuscular Hemoglobin Concent 34 g/dL Red Cell Distribution Width 13.7 % Platelet Count 254 x10^3/uL Neutrophils (%) (Auto) 77 % Lymphocytes (%) (Auto) 17 % Monocytes (%) (Auto) 5 % Eosinophils (%) (Auto) 1 % Basophils (%) (Auto) 0 % Neutrophils # (Auto) 7.7 x10^3uL Lymphocytes # (Auto) 1.7 x10^3/uL Monocytes # (Auto) 0.5 x10^3/uL Eosinophils # (Auto) 0.1 x10^3/uL Basophils # (Auto) 0.0 x10^3/uL Sodium Level 143 mmol/L Potassium Level 4.0 mmol/L Chloride Level 105 mmol/L Carbon Dioxide Level 26 mmol/L Anion Gap 12 Blood Urea Nitrogen 9 mg/dL Creatinine 0.9 mg/dL Estimated GFR (Cockcroft-Gault) 99.1 BUN/Creatinine Ratio 10 Glucose Level 101 mg/dL Calcium Level 8.7 mg/dL Total Bilirubin 0.4 mg/dL Aspartate Amino Transf (AST/SGOT) 19 U/L Alanine Aminotransferase (ALT/SGPT) 35 U/L Alkaline Phosphatase 63 U/L Troponin I High Sensitivity 5 ng/L Total Protein 7.2 g/dL Albumin 4.5 g/dL Albumin/Globulin Ratio 1.7 Lipase 85 U/L Urine Opiates Screen Neg Urine Methadone Screen Neg Urine Barbiturates Neg Urine Phencyclidine Screen Neg Urine Amphetamine/Methamphetamine Neg Urine Benzodiazepines Screen Neg Urine Cocaine Screen Neg Urine Cannabinoids Screen Pos Urine Ethyl Alcohol Current Medications Medications (Trade) Dose Ordered Sig/Sukh Route PRN Reason Start Time Stop Time Status Last Admin Dose Admin Sodium Chloride 1,000 ml @ 1,000 mls/hr Q1H IV 07/07/21 14:15 07/07/21 15:14 DC 07/07/21 14:34 Fentanyl Citrate (Fentanyl 2ml Vial) 50 mcg 1X ONCE IVP 07/07/21 14:15 07/07/21 14:55 DC 07/07/21 14:34 Ondansetron HCl (Zofran) 4 mg 1X ONCE IVP 07/07/21 14:15 07/07/21 14:55 DC 07/07/21 14:34 Iohexol (Omnipaque 300 Mg/ml) 75 ml 1X ONCE IV 07/07/21 14:30 07/07/21 14:55 DC 07/07/21 14:58 Vital Signs: Vital Signs Date Time Temp Pulse Resp B/P (MAP) Pulse Ox O2 Delivery O2 Flow Rate FiO2 07/07/21 13:56 98.6 92 16 154/89 (110) 97 Room Air EKG: EKG: [] Radiology/Procedures: Radiology/Procedures: []PROCEDURE: CT ABD PELV W/ IV CONTRST ONLY EXAM: CT ABDOMEN/PELVIS WITH CONTRAST. HISTORY: Abdominal pain, pancreatitis. TECHNIQUE: Computed tomography of the abdomen and pelvis was performed after the intravenous administration of iodinated contrast. One or more of the following individualized dose reduction techniques were utilized for this examination: 1. Automated exposure control. 2. Adjustment of the mA and/or kV according to patient size. 3. Use of iterative reconstruction technique. COMPARISON: None. FINDINGS: Lung windows through the visualized portions of the bases reveal no abnormality. Bone windows reveal no suspicious lesions. The liver, gallbladder, pancreas, adrenal glands, spleen and kidneys are un remarkable. There are no peripancreatic inflammatory changes. There is no biliary dilatation. There are no pathologically enlarged lymph nodes. The left colon is decompressed but there is suggestion of mild wall thickening. The appendix is not inflamed. There is no small bowel obstruction. IMPRESSION: 1. Mild left colonic wall thickening. Correlate clinically for colitis. 2. No evidence of peripancreatic inflammation by CT. Electronically signed by: Klever Mackenzie MD (07/07/2021 3:17 PM) [facility] DICTATED AND SIGNED BY: JOHN MACKENZIE MD DATE: 07/07/21 1514 CC: SHIRA SALDIVAR APRN; PCP,NO ~MTH0 0 Heart Score: C/O Chest Pain: N/A Risk Factors: Risk Factors: DM, Current or recent (<one month) smoker, HTN, HLP, family history of CAD, obesity. Risk Scores: Score 0 - 3: 2.5% MACE over next 6 weeks - Discharge Home Score 4 - 6: 20.3% MACE over next 6 weeks - Admit for Clinical Observation Score 7 - 10: 72.7% MACE over next 6 weeks - Early Invasive Strategies Course & Med Decision Making: Course & Med Decision Making ]Pertinent Labs and Imaging studies reviewed. (See chart for details) Patient presents to the emergency department with generalized abdominal pain worse in his right lower quadrant. He has a history of pancreatitis. Work-up in the ER consisted of blood work, urinalysis, CT imaging of abdomen and pelvis. Patient treated with IV fluids, nausea medication and pain medication. Patient CBC and CMP are unremarkable. Patient had a negative lipase. CT of abdomen and pelvis shows colitis. Patient advised to continue taking his Pepcid at home. He will be discharged home with nausea medication. I discussed with patient all findings and diagnostic testing as well as the need to follow-up with PCP for further evaluation and treatment or return to the ER if any new or worsening symptoms. Strict return precautions were also discussed at length. Patient voiced understanding and agreement with the plan. Patient is hemodynamically stable at the time of disposition. [] When discussing discharge with patient, he reports that he would like to also be evaluated for a rash that he had on his palms that started today. 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 Rash appears to be a contact dermatitis. Patient will be discharged home with a steroid cream. Vanessa Disclaimer: Vanessa Disclaimer: This electronic medical record was generated, in whole or in part, using a voice recognition dictation system. Departure Departure: Impression: Primary Impression: Colitis Disposition: HOME / SELF CARE / HOMELESS Condition: GOOD Referrals: PCP,KELI (PCP) ANY POWER MD Patient Instructions: Abdominal Pain (Nonspecific) Additional Instructions: You were seen in the emergency department today for abdominal pain. Your lab work is unremarkable. The CT scan of your abdomen shows colitis which is just inflammation of your colon this can be caused by viruses or bacteria. Your pancreas is unremarkable. Please continue taking the Pepcid at home. You are being discharged home with nausea medication, please use this as directed. Increase your fluids and ensure hydration. Avoid eating spicy, greasy, fatty foods or dairy. You are being discharged home with antibiotics. Please take them as directed. Please do not drink any alcohol with these medications as it will cause severe vomiting. Follow-up with your primary care provider on Thursday regarding your ER visit. If you do not have a primary care provider, you can follow-up with one of the primary care providers provided for you. You will need to follow-up with a GI doctor to make sure that you do not have an inflammatory bowel disease. You can follow-up with the GI doctor that was written on this discharge paperwork. Return to the emergency department if you develop worsening of your abdominal pain, blood in your stools or vomit, high fevers refractory to treatment, intractable nausea or vomiting. For the rash on your hand, it appears to be a contact dermatitis will be treated with a steroid cream. Please use the cream as directed. Scripts Betamethasone Dipropionate (BETAMETHASONE DIPROPIONATE) 15 Gm Cream..g. 1 DAVID TP BID for rash for 14 Days, #15 GM 0 Refills Prov: SHIRA SALDIVAR APRN 07/07/21 Ondansetron (ONDANSETRON ODT) 4 Mg Tab.rapdis 1 TAB PO PRN Q6-8HRS for nausea for 3 Days, #16 TAB 0 Refills Prov: SHIRA SALDIVAR APRN 07/07/21 Ciprofloxacin Hcl (CIPROFLOXACIN HCL) 500 Mg Tablet 1 TAB PO BID for infection for 7 Days, #14 TAB 0 Refills Prov: SHIRA SALDIVAR APRN 07/07/21 Metronidazole (METRONIDAZOLE) 500 Mg Tablet 1 TAB PO TID for infection for 7 Days, #21 TAB 0 Refills Prov: SHIRA SALDIVAR APRN 07/07/21 SHIRA SALDIVAR APRN Jul 07, 2021 14:23
[2021-07-07] MEDS ORDERED: IOHEXOL 300 MG/ML 75 ML VIAL. IV ONE (14:30)
[2021-07-07 14:57] LABS: BASO % 0 % (0-3); EOS # 0.1 x10^3/uL (0.0-0.7); EOS % 1 % (0-3); HEMATOCRIT 46.7 % (39.0-53.0); LYMPH # 1.7 x10^3/uL (1.0-4.8); LYMPH % 17 % (24-48); MEAN CORPUSCULAR HEMOGLOBIN 31 pg (25-35); MEAN CORPUSCULAR HGB CONC 34 g/dL (31-37); MEAN CORPUSCULAR VOLUME 89 fL (79-100); MONO # 0.5 x10^3/uL (0.0-1.1); MONO % 5 % (0-9); NEUT # 7.7 x10^3uL (1.8-7.7); NEUT % 77 % (31-73); PLATELET COUNT 254 x10^3/uL (140-400); RED BLOOD COUNT 5.22 x10^6/uL (4.30-5.70); RED CELL DISTRIBUTION WIDTH 13.7 % (11.5-14.5); WHITE BLOOD COUNT 10.1 x10^3/uL (4.0-11.0)
[2021-07-07 15:12] LABS: CALCIUM 8.7 mg/dL (8.5-10.1); CREATININE 0.9 mg/dL (0.7-1.3); GFR 99.1
[2021-07-07 15:17] LABS: ALBUMIN 4.5 g/dL (3.4-5.0); ALBUMIN/GLOBULIN RATIO 1.7 (1.0-1.7); TOTAL BILIRUBIN 0.4 mg/dL (0.2-1.0); TOTAL PROTEIN 7.2 g/dL (6.4-8.2)
[2021-07-07 15:18] LABS: BARBITURATES NEG (NEG); BENZODIAZEPINES NEG (NEG); CANNABINOIDS POS (NEG); COCAINE NEG (NEG); METHADONE NEG (NEG); OPIATES NEG (NEG); PHENCYCLIDINE NEG (NEG)
--- NOTE | 2021-07-07 15:19 | RAD ---
EXAM: CT ABDOMEN/PELVIS WITH CONTRAST. HISTORY: Abdominal pain, pancreatitis. TECHNIQUE: Computed tomography of the abdomen and pelvis was performed after the intravenous administ ration of iodinated contrast. One or more of the following individualized dose reduction techniques w ere utilized for this examination: 1. Automated exposure control. 2. Adjustment of the mA and/or kV according to patient size. 3. Use of iterative reconstruction technique. COMPARISON: None. FINDINGS: Lung windows through the visualized portions of the bases reveal no abnormality. Bone windo ws reveal no suspicious lesions. The liver, gallbladder, pancreas, adrenal glands, spleen and kidneys are unremarkable. There are no p eripancreatic inflammatory changes. There is no biliary dilatation. There are no pathologically enlarged lymph nodes. The left colon is decompressed but there is suggest ion of mild wall thickening. The appendix is not inflamed. There is no small bowel obstruction. IMPRESSION: 1. Mild left colonic wall thickening. Correlate clinically for colitis. 2. No evidence of peripancreatic inflammation by CT. Electronically signed by: Klever Mackenzie MD (07/07/2021 3:17 PM) [facility]
[2021-07-07 15:22] LABS: AMPHETAMINE/METHAMPHETAMINE NEG (NEG)
[2021-07-07] MEDS ORDERED: LIDO:MAALOX 1:1 20 ML SINGLE DOSE. PO ONE (15:30)
[2021-07-07] MEDS ORDERED: METR-34 PO (15:33)
[2021-07-07] MEDS ORDERED: ONDA4TAB12 PO (15:33)
[2021-07-07] MEDS ORDERED: CIPR500T2 PO (15:33)
[2021-07-07 15:35] LABS: BILIRUBIN,URINE NEG (NEG); CLARITY,URINE CLOUDY; COLOR,URINE YELLOW; GLUCOSE,URINE NEG (NEG); NITRITE,URINE NEG (NEG); RBC,URINE 0 /HPF (0-2); UROBILINOGEN,URINE 0.2 mg/dL (0.2 mg/dL)
[2021-07-07 15:36] LABS: AMORPHOUS SEDIMENT,UR PRESENT /HPF; BACTERIA,URINE 0 /HPF (0-FEW); SQUAMOUS EPITHELIAL CELL,UR OCC /LPF; WBC,URINE 0 /HPF (0-4)
[2021-07-07] MEDS ORDERED: BETA15CR5 TP (15:47)
== END 2021-07-07 15:51 | disposition home or self-care (01) ==
LOC: ER 13:56
DX: K52.9 Noninfective gastroenteritis and colitis, unspecified (principal); F17.210 Nicotine dependence, cigarettes, uncomplicated; Z88.0 Allergy status to penicillin; Z88.1 Allergy status to other antibiotic agents; Z88.8 Allergy status to other drugs, medicaments and biological substances
CPT/HCPCS: 36415; 74177; 80053; 80307; 81001; 83690; 84484; 85025; 96361; 96374; 96375; 99285; J2405; J3010; J7030; Q9967

== ENCOUNTER 2021-08-08 09:45 | Emergency (ER) | payer SELFPAY ==
[~2021-08-08] VITALS: Ht 170.2 cm; Wt 77.6 kg
[~2021-08-08 09:45] MED LIST changes: +BETA15CR5 TP; +CIPR500T2 PO; +METR-34 PO; +ONDA4TAB12 PO
--- NOTE | 2021-08-08 10:16 | PHYS DOC ---
Past History Past Medical History: No Pertinent History, Other Additional Past Medical Histor: hx of depression--suicidal ideation in 02/2019 Past Surgical History: No Surgical History Smoking: Cigarettes, Greater than 1 pack/day Alcohol Use: None Drug Use: Methamphetamine Social History Narrative: hx of drug abuse Adult General Chief Complaint Chief Complaint: CHEST PAIN HPI HPI Patient is a 30 year old M who presents with chest pain. The patient states that the pain occurred 15-20 minutes before he came to the ER. This is the first time this pain has ever occurred. Pt describes the pain as needles poking and stabbing him on the left side of his chest under his left breast. The patient mentioned that when the pain occurred he was outside, standing smoking a cigarette. Pt describes the pain as non-constant (comes and goes) and of brief duration (on-off pattern). The pain does not radiate anywhere beyond the left breast area. Pt rates the pain as a 4 out of 10 in severity. Mr. Sharma mentioned that he is under a greater amount of stress than usual (domestic/marital issues). He denied any pertinent family health history. The patient smokes half a pack of cigarettes a day. He has smoked a half a pack since last August (2020). Before August 2020 he smoked 1 1/2-2 packs of cigarettes for 15 years. Review of Systems Review of Systems Fourteen body systems of review of systems have been reviewed. See HPI for pertinent positives and negative responses, other sultana all other systems are negative, non-pertinent or non-contributory Allergies Allergies Allergies Coded Allergies Type Severity Reaction Last Updated Verified Penicillins Allergy Intermediate 09/08/20 Yes amoxicillin Allergy Intermediate 09/08/20 Yes azithromycin Allergy Intermediate 09/08/20 Yes promethazine Allergy Intermediate 09/08/20 Yes Physical Exam Physical Exam Constitutional: Well developed, well nourished, no acute distress, non-toxic appearance. HENT: Normocephalic, atraumatic, bilateral external ears normal, oropharynx moist, no oral exudates, nose normal. Eyes: PERRLA, EOMI, conjunctiva normal, no discharge. Neck: Normal range of motion, no tenderness, supple, no stridor. Cardiovascular: Heart rate regular, sinus rhythm, no murmurs rubs or gallops Lungs & Thorax: Bilateral breath sounds clear to auscultation Abdomen: Bowel sounds normal, soft, no tenderness, no masses, no pulsatile masses. Nonsurgical abdomen, no peritoneal signs Skin: Warm, dry, no erythema, no rash. Back: No tenderness, no CVA tenderness. Extremities: No tenderness, no cyanosis, no clubbing, ROM intact, no edema. Neurologic: Alert and oriented X 3, grossly normal motor & sensory function, no focal deficits noted. Psychologic: Affect normal, judgement normal, mood normal. Current Patient Data Vital Signs Vital Signs Date Time Temp Pulse Resp B/P (MAP) Pulse Ox O2 Delivery O2 Flow Rate FiO2 08/08/21 09:59 98.2 118 18 164/90 (114) 99 Room Air EKG EKG EKG ordered and interpreted by myself at 1010 hrs. as sinus tachycardia at 116 bpm, unremarkable intervals, no axis deviation, no ischemic findings, no STEMI Radiology/Procedures Radiology/Procedures EXAM: Chest, single view. HISTORY: Rest pain. COMPARISON: 04/16/2021 FINDINGS: A frontal view of the chest is obtained. There is no infiltrate, pleural effusion or pneumothorax. The heart is normal in size. IMPRESSION: No acute pulmonary finding. Electronically signed by: Amelie Zhou MD (08/08/2021 10:31 AM) [id number] Heart Score C/O Chest Pain: Yes HEART Score for Chest Pain: HEART Score for Chest Pain Response (Comments) Value History Slighlty/Non-Suspicious 0 ECG Nonspecific Repolarizatio 1 Age < 45 0 Risk Factors 1 or 2 Risk Factors 1 Troponin < Normal Limit 0 Total 2 Risk Factors: Risk Factors: DM, Current or recent (<one month) smoker, HTN, HLP, family history of CAD, obesity. Risk Scores: Risk Factors: DM, Current or recent (<one month) smoker, HTN, HLP, family history of CAD, obesity. Course & Med Decision Making Course & Med Decision Making ABCs unremarkable HPI PE and ER workup nonconcerning for any emergent or surgical issues Low HEART score. + THC. Non-concerning story, likely atypical/non-cardiac etiology. Close PCP follow-up for further outpatient testing advised Vanessa Disclaimer Vanessa Disclaimer This electronic medical record was generated, in whole or in part, using a voice recognition dictation system. Departure Departure: Impression: Primary Impression: Chest pain Disposition: HOME / SELF CARE / HOMELESS Condition: STABLE Referrals: PCP,NO (PCP) Additional Instructions: You were seen for chest pain. Your workup did not show any acute abnormalities today, but does not indicate that you do not have underlying cardiovascular disease. You do need to follow up with your primary doctor and potentially a clinique counter manager for further evaluation and treatment. You should return to the ED if you develop worsening chest pain, shortness of breath, fever, abnormal sweating, leg swelling, or any other new or concerning symptoms. OSCAR STRINGER DO Aug 08, 2021 10:16
[2021-08-08] MEDS ORDERED: ASPIRIN CHEWABLE 81 MG TABLET. PO ONE (10:30)
[2021-08-08] MEDS ORDERED: IV NORMAL SALINE 1,000ML 1,000 ML IV ONE (10:30)
--- NOTE | 2021-08-08 10:33 | RAD ---
EXAM: Chest, single view. HISTORY: Rest pain. COMPARISON: 04/16/2021 FINDINGS: A frontal view of the chest is obtained. There is no infiltrate, pleural effusion or pneumo thorax. The heart is normal in size. IMPRESSION: No acute pulmonary finding. Electronically signed by: Amelie Zhou MD (08/08/2021 10:31 AM) [id number]
[2021-08-08 11:04] LABS: BASO % 0 % (0-3); EOS % 0 % (0-3); HEMATOCRIT 47.2 % (39.0-53.0); HEMOGLOBIN 16.1 g/dL (13.0-17.5); LYMPH # 1.3 x10^3/uL (1.0-4.8); LYMPH % 9 % (24-48); MEAN CORPUSCULAR HEMOGLOBIN 30 pg (25-35); MEAN CORPUSCULAR HGB CONC 34 g/dL (31-37); MEAN CORPUSCULAR VOLUME 89 fL (79-100); MONO # 0.6 x10^3/uL (0.0-1.1); MONO % 4 % (0-9); NEUT % 87 % (31-73); PLATELET COUNT 205 x10^3/uL (140-400); RED BLOOD COUNT 5.31 x10^6/uL (4.30-5.70); RED CELL DISTRIBUTION WIDTH 13.5 % (11.5-14.5)
[2021-08-08 11:11] LABS: CALCIUM 8.7 mg/dL (8.5-10.1); GFR 87.7; POTASSIUM 3.5 mmol/L (3.5-5.1)
[2021-08-08 11:43] LABS: BARBITURATES NEG (NEG); BENZODIAZEPINES NEG (NEG); CANNABINOIDS POS (NEG); COCAINE NEG (NEG); METHADONE NEG (NEG); OPIATES NEG (NEG); PHENCYCLIDINE NEG (NEG)
[2021-08-08 11:45] LABS: AMPHETAMINE/METHAMPHETAMINE NEG (NEG)
[2021-08-08 11:54] VITALS: BP 157/85
[2021-08-08 11:58] LABS: BACTERIA,URINE 0 /HPF (0-FEW); BILIRUBIN,URINE NEG (NEG); CLARITY,URINE CLEAR; COLOR,URINE YELLOW; GLUCOSE,URINE NEG (NEG); NITRITE,URINE NEG (NEG); RBC,URINE 0 /HPF (0-2); UROBILINOGEN,URINE 0.2 mg/dL (0.2 mg/dL); WBC,URINE 0 /HPF (0-4)
--- NOTE | 2021-08-08 23:17 | EKG ---
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
== END 2021-08-08 12:32 | disposition home or self-care (01) ==
LOC: ER 09:45
DX: R07.89 Other chest pain (principal); F17.210 Nicotine dependence, cigarettes, uncomplicated; Z88.0 Allergy status to penicillin; Z88.1 Allergy status to other antibiotic agents; Z88.8 Allergy status to other drugs, medicaments and biological substances
CPT/HCPCS: 36415; 71045; 80048; 80307; 81001; 83735; 84484; 85025; 93005; 96360; 99285; J7030

== ENCOUNTER 2021-08-11 00:30 | Emergency (ER) | payer SELFPAY ==
[~2021-08-11] VITALS: Ht 170.2 cm; Wt 76.5 kg
[2021-08-11 00:40] VITALS: BP 151/84
--- NOTE | 2021-08-11 01:14 | PHYS DOC ---
Past History Past Medical History: No Pertinent History, Other Additional Past Medical Histor: hx of depression--suicidal ideation in 02/2019 Past Surgical History: No Surgical History Smoking: Cigarettes, Greater than 1 pack/day Alcohol Use: None Drug Use: Methamphetamine General Adult EDM: Chief Complaint: CHEST PAIN HPI: HPI: 30-year-old male returns the emergency room with chest pain. Patient states that he is having similar chest pain to what he had 2 days ago when he was seen in this ER by my colleague. The pain is an intermittent stabbing sensation in the center of his chest. He felt like he was having runs of tachycardia but he is not sure. Patient has not had the time to follow-up from his previous visit. Patient also admits to having a history of GERD. He has not been taking medications for this recently. Denies fever or chills. The patient does smoke cigarettes. He denies any drug use. Review of Systems: Review of Systems: Constitutional: Denies fever or chills Eyes: Denies change in visual acuity HENT: Denies nasal congestion or sore throat Respiratory: Denies cough or shortness of breath Cardiovascular: Chest pain GI: Nausea. Denies abdominal pain, vomiting, bloody stools or diarrhea : Denies dysuria Musculoskeletal: Denies back pain or joint pain Integument: Denies rash Neurologic: Denies headache, focal weakness or sensory changes Endocrine: Denies polyuria or polydipsia Lymphatic: Denies swollen glands Psychiatric: Denies depression or anxiety Current Medications: Current Meds: Current Medications Medications (Trade) Dose Ordered Sig/Sukh Start Time Stop Time Status Last Admin Dose Admin Famotidine (Pepcid Vial) 20 mg 1X ONCE 08/11/21 01:30 08/11/21 01:31 08/11/21 00:59 20 MG Pantoprazole Sodium (Protonix Vial) 40 mg 1X ONCE 08/11/21 01:30 08/11/21 01:31 08/11/21 01:00 40 MG Sodium Chloride 1,000 ml @ 1,000 mls/hr 1X ONCE 08/11/21 01:30 08/11/21 02:29 08/11/21 01:00 1,000 MLS/HR Allergies: Allergies: Allergies Coded Allergies Type Severity Reaction Last Updated Verified Penicillins Allergy Intermediate 08/11/21 Yes amoxicillin Allergy Intermediate 08/11/21 Yes azithromycin Allergy Intermediate 08/11/21 Yes promethazine Allergy Intermediate 08/11/21 Yes Physical Exam: PE: Constitutional: Well developed, well nourished, no acute distress, non-toxic appearance. [] HENT: Normocephalic, atraumatic, bilateral external ears normal, oropharynx moist, no oral exudates, nose normal. [] Eyes: PERRLA, EOMI, conjunctiva normal, no discharge. [] Neck: Normal range of motion, no tenderness, supple, no stridor. [] Cardiovascular:Heart rate regular rhythm, no murmur [] Lungs & Thorax: Bilateral breath sounds clear to auscultation [] Abdomen: Bowel sounds normal, soft, no tenderness, no masses, no pulsatile masses. [] Skin: Warm, dry, no erythema, no rash. [] Back: No tenderness, no CVA tenderness. [] Extremities: No tenderness, no cyanosis, no clubbing, ROM intact, no edema. [] Neurologic: Alert and oriented X 3, normal motor function, normal sensory function, no focal deficits noted. [] Psychologic: Affect normal, judgement normal, mood normal. [] Current Patient Data: Vital Signs: Vital Signs Date Time Temp Pulse Resp B/P (MAP) Pulse Ox O2 Delivery O2 Flow Rate FiO2 08/11/21 00:40 98.0 103 20 151/84 (106) 99 Room Air EKG: EKG: Sinus rhythm, rate 98, normal axis, no ST elevation or depression. [] Radiology/Procedures: Radiology/Procedures: [] Impressions: EXAM: AP View of the chest DATE: 08/11/2021 12:51 AM INDICATION: Reason: CP / Spl. Instructions: / History: COMPARISON: 08/08/2021 FINDINGS: The heart is not enlarged. Mediastinal and hilar contours are normal. No focal parenchymal airspace opacity. No pleural effusion or pneumothorax. IMPRESSION: 1. No radiographic evidence for acute cardiopulmonary process. Electronically signed by: Anthony Segura MD (08/11/2021 1:19 AM) [facility] DICTATED AND SIGNED BY: ANTHONY SEGURA MD DATE: 08/11/21 0119 CC: CLIVE PONCE DO; PCP,NO ~MTH0 0 Heart Score: C/O Chest Pain: Yes HEART Score for Chest Pain: HEART Score for Chest Pain Response (Comments) Value History Slighlty/Non-Suspicious 0 ECG Normal 0 Age < 45 0 Risk Factors 1 or 2 Risk Factors 1 Troponin < Normal Limit 0 Total 1 Risk Factors: Risk Factors: DM, Current or recent (<one month) smoker, HTN, HLP, family history of CAD, obesity. Risk Scores: Score 0 - 3: 2.5% MACE over next 6 weeks - Discharge Home Score 4 - 6: 20.3% MACE over next 6 weeks - Admit for Clinical Observation Score 7 - 10: 72.7% MACE over next 6 weeks - Early Invasive Strategies Course & Med Decision Making: Course & Med Decision Making Pertinent Labs and Imaging studies reviewed. (See chart for details) The patient's EKG is unremarkable. His chest x-ray is negative for acute findings. His labs are unremarkable. His troponin is negative. This does not appear to be cardiopulmonary in nature. I have given him Protonix and Pepcid. Have advised that he do a 2-week course of proton pump inhibitor. He is stable for discharge at this time. [] Vanessa Disclaimer: Vanessa Disclaimer: This electronic medical record was generated, in whole or in part, using a voice recognition dictation system. Departure Departure: Impression: Primary Impression: Chest pain Qualified Codes: R07.9 - Chest pain, unspecified Additional Impression: GERD (gastroesophageal reflux disease) Disposition: HOME / SELF CARE / HOMELESS Condition: STABLE Referrals: PCP,NO (PCP) Patient Instructions: Chest Pain (Nonspecific), [id number] CLIVE PONCE DO Aug 11, 2021 01:14
--- NOTE | 2021-08-11 01:22 | RAD ---
EXAM: AP View of the chest DATE: 08/11/2021 12:51 AM INDICATION: Reason: CP / Spl. Instructions: / History: COMPARISON: 08/08/2021 FINDINGS: The heart is not enlarged. Mediastinal and hilar contours are normal. No focal parenchymal airspace opacity. No pleural effusion or pneumothorax. IMPRESSION: 1. No radiographic evidence for acute cardiopulmonary process. Electronically signed by: Anthony Segura MD (08/11/2021 1:19 AM) BRUNILDA
[2021-08-11] MEDS ORDERED: FAMOTIDINE 20 MG/2 ML VIAL IVP ONE (01:30)
[2021-08-11] MEDS ORDERED: IV NORMAL SALINE 1,000ML 1,000 ML IV ONE (01:30)
[2021-08-11] MEDS ORDERED: PANTOPRAZOLE IV 40 MG VIAL. IVP ONE (01:30)
[2021-08-11 01:44] LABS: BASO # 0.1 x10^3/uL (0.0-0.2); BASO % 1 % (0-3); EOS # 0.7 x10^3/uL (0.0-0.7); EOS % 8 % (0-3); HEMATOCRIT 45.6 % (39.0-53.0); HEMOGLOBIN 15.6 g/dL (13.0-17.5); LYMPH # 3.1 x10^3/uL (1.0-4.8); LYMPH % 35 % (24-48); MEAN CORPUSCULAR HEMOGLOBIN 31 pg (25-35); MEAN CORPUSCULAR HGB CONC 34 g/dL (31-37); MEAN CORPUSCULAR VOLUME 89 fL (79-100); MONO # 0.5 x10^3/uL (0.0-1.1); MONO % 6 % (0-9); NEUT # 4.5 x10^3uL (1.8-7.7); NEUT % 51 % (31-73); PLATELET COUNT 217 x10^3/uL (140-400); RED BLOOD COUNT 5.13 x10^6/uL (4.30-5.70); RED CELL DISTRIBUTION WIDTH 13.5 % (11.5-14.5); WHITE BLOOD COUNT 8.9 x10^3/uL (4.0-11.0)
[2021-08-11 01:55] LABS: CALCIUM 8.5 mg/dL (8.5-10.1); GFR 87.7; POTASSIUM 3.4 mmol/L (3.5-5.1)
[2021-08-11 02:01] LABS: ALBUMIN 4.9 g/dL (3.4-5.0); ALBUMIN/GLOBULIN RATIO 2.2 (1.0-1.7); TOTAL BILIRUBIN 0.5 mg/dL (0.2-1.0); TOTAL PROTEIN 7.1 g/dL (6.4-8.2)
--- NOTE | 2021-08-11 02:06 | EKG ---
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
== END 2021-08-11 02:48 | disposition home or self-care (01) ==
LOC: ER 00:30
DX: K21.9 Gastro-esophageal reflux disease without esophagitis (principal); R07.89 Other chest pain; Z20.822 Contact with and (suspected) exposure to COVID-19; F17.210 Nicotine dependence, cigarettes, uncomplicated; Z88.0 Allergy status to penicillin; Z88.1 Allergy status to other antibiotic agents; Z88.8 Allergy status to other drugs, medicaments and biological substances
CPT/HCPCS: 36415; 71045; 80053; 84484; 85025; 93005; 96361; 96374; 96375; 99285; C9113; G0480; J3490; J7030

== ENCOUNTER 2021-08-23 12:51 | Emergency (ER) | payer SELFPAY ==
[~2021-08-23] VITALS: Ht 170.2 cm; Wt 74.0 kg
[2021-08-23] MEDS ORDERED: hydrOXYzine HCL 25 MG TABLET PO STA (13:44)
[2021-08-23] MEDS ORDERED: ONDANSETRON PF 4 MG/2 ML VIAL. IVP ONE (13:45)
[2021-08-23] MEDS ORDERED: IV NORMAL SALINE 1,000ML 1,000 ML IV ONE (13:45)
[2021-08-23 14:02] LABS: BASO # 0.1 x10^3/uL (0.0-0.2); BASO % 1 % (0-3); EOS # 0.1 x10^3/uL (0.0-0.7); EOS % 1 % (0-3); HEMATOCRIT 46.9 % (39.0-53.0); HEMOGLOBIN 15.9 g/dL (13.0-17.5); LYMPH % 26 % (24-48); MEAN CORPUSCULAR HEMOGLOBIN 30 pg (25-35); MEAN CORPUSCULAR HGB CONC 34 g/dL (31-37); MEAN CORPUSCULAR VOLUME 89 fL (79-100); MONO # 0.5 x10^3/uL (0.0-1.1); MONO % 7 % (0-9); NEUT % 66 % (31-73); PLATELET COUNT 235 x10^3/uL (140-400); RED BLOOD COUNT 5.29 x10^6/uL (4.30-5.70); RED CELL DISTRIBUTION WIDTH 13.2 % (11.5-14.5); WHITE BLOOD COUNT 7.6 x10^3/uL (4.0-11.0)
[2021-08-23 14:10] LABS: CALCIUM 8.6 mg/dL (8.5-10.1); CREATININE 1.1 mg/dL (0.7-1.3); GFR 78.6; POTASSIUM 3.9 mmol/L (3.5-5.1)
--- NOTE | 2021-08-23 14:12 | RAD ---
EXAM: Abdomen, single view. HISTORY: Left lower quadrant pain. COMPARISON: None. FINDINGS: A frontal view of the abdomen is obtained. There is moderate gas and stool within the colon . There are are prominent air-filled small bowel within the midabdomen. There is no transition point. 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 IMPRESSION: 1. Prominent air-filled small bowel within the midabdomen. There is no convincing transition point to suggest obstruction. 2. Moderate colonic stool. Electronically signed by: Amelie Zhou MD (08/23/2021 2:10 PM) [id number]
[2021-08-23 14:13] LABS: BILIRUBIN,URINE SMALL (NEG); CLARITY,URINE CLEAR; COLOR,URINE YELLOW; GLUCOSE,URINE NEG (NEG)
[2021-08-23 14:14] LABS: BACTERIA,URINE 0 /HPF (0-FEW); NITRITE,URINE NEG (NEG); SQUAMOUS EPITHELIAL CELL,UR OCC /LPF; UROBILINOGEN,URINE 0.2 mg/dL (0.2 mg/dL); WBC,URINE 0 /HPF (0-4)
[2021-08-23 14:16] LABS: ALBUMIN 4.9 g/dL (3.4-5.0); TOTAL BILIRUBIN 0.5 mg/dL (0.2-1.0); TOTAL PROTEIN 7.3 g/dL (6.4-8.2)
[2021-08-23 15:19] LABS: INFLUENZA A PATIENT NEGATIVE (NEGATIVE); INFLUENZA B PATIENT NEGATIVE (NEGATIVE)
--- NOTE | 2021-08-23 15:40 | PHYS DOC ---
Past History Past Medical History: No Pertinent History, Other Additional Past Medical Histor: hx of methadone abuse; colitis, contact dermatitis Past Surgical History: No Surgical History Smoking: Cigarettes, Greater than 1 pack/day Alcohol Use: None Drug Use: Methamphetamine General Adult EDM: Chief Complaint: ABDOMINAL PAIN HPI: HPI: 30-year-old male returns emergency room with continued left-sided abdominal pa in. Patient was seen previously in this emergency room for this ailment. His pain is a mild to moderate cramping. It seems to happen at random. He does admit that the discomfort is much worse when he is emotionally upset. He states he has had a stressful day. He is not currently taking any medications. Denies fever or chills. Review of Systems: Review of Systems: Constitutional: Denies fever or chills Eyes: Denies change in visual acuity HENT: Denies nasal congestion or sore throat Respiratory: Denies cough or shortness of breath Cardiovascular: Denies chest pain or edema GI: Denies abdominal pain, nausea, vomiting, bloody stools or diarrhea : Denies dysuria Musculoskeletal: Denies back pain or joint pain Integument: Denies rash Neurologic: Denies headache, focal weakness or sensory changes Endocrine: Denies polyuria or polydipsia Lymphatic: Denies swollen glands Psychiatric: Denies depression or anxiety Current Medications: Current Meds: Current Medications Medications (Trade) Dose Ordered Sig/Sukh Start Time Stop Time Status Last Admin Dose Admin Hydroxyzine HCl (Atarax) 25 mg 1X STAT 08/23/21 13:44 08/23/21 13:49 DC 08/23/21 13:44 25 MG Ondansetron HCl (Zofran) 4 mg 1X ONCE 08/23/21 13:45 08/23/21 13:46 DC 08/23/21 13:50 4 MG Sodium Chloride 1,000 ml @ 1,000 mls/hr 1X ONCE 08/23/21 13:45 08/23/21 14:44 DC 08/23/21 13:50 1,000 MLS/HR Allergies: Allergies: Allergies Coded Allergies Type Severity Reaction Last Updated Verified Penicillins Allergy Intermediate 08/11/21 Yes amoxicillin Allergy Intermediate 08/11/21 Yes azithromycin Allergy Intermediate 08/11/21 Yes promethazine Allergy Intermediate 08/11/21 Yes Physical Exam: PE: Constitutional: Well developed, well nourished, no acute distress, non-toxic shelly earance. [] HENT: Normocephalic, atraumatic, bilateral external ears normal, oropharynx moist, no oral exudates, nose normal. [] Eyes: PERRLA, EOMI, conjunctiva normal, no discharge. [] Neck: Normal range of motion, no tenderness, supple, no stridor. [] Cardiovascular:Heart rate regular rhythm, no murmur [] Lungs & Thorax: Bilateral breath sounds clear to auscultation [] Abdomen: Bowel sounds normal, soft, no tenderness, no masses, no pulsatile masses. [] Skin: Warm, dry, no erythema, no rash. [] Back: No tenderness, no CVA tenderness. [] Extremities: No tenderness, no cyanosis, no clubbing, ROM intact, no edema. [] Neurologic: Alert and oriented X 3, normal motor function, normal sensory function, no focal deficits noted. [] Psychologic: Affect normal, judgement normal, mood normal. [] Current Patient Data: Labs: Laboratory Tests Test 08/23/21 13:35 08/23/21 13:45 08/23/21 14:20 Urine Collection Type Clean catch Urine Color Yellow Urine Clarity Clear Urine pH 5.5 Urine Specific [place] >=1.030 Urine Protein 30 mg/dl (NEG-TRACE) Urine Glucose (UA) Neg mg/dL (NEG) Urine Ketones (Stick) 80 mg/dL (NEG) Urine Blood Trace (NEG) Urine Nitrite Neg (NEG) Urine Bilirubin Small (NEG) Urine Urobilinogen Dipstick 0.2 mg/dL (0.2 mg/dL) Urine Leukocyte Esterase Neg (NEG) Urine RBC 1-2 /HPF (0-2) Urine WBC 0 /HPF (0-4) Urine Squamous Epithelial Cells Occ /LPF Urine Bacteria 0 /HPF (0-FEW) Urine Mucus Mod /LPF White Blood Count 7.6 x10^3/uL (4.0-11.0) Red Blood Count 5.29 x10^6/uL (4.30-5.70) Hemoglobin 15.9 g/dL (13.0-17.5) Hematocrit 46.9 % (39.0-53.0) Mean Corpuscular Volume 89 fL (79-100) Mean Corpuscular Hemoglobin 30 pg (25-35) Mean Corpuscular Hemoglobin Concent 34 g/dL (31-37) Red Cell Distribution Width 13.2 % (11.5-14.5) Platelet Count 235 x10^3/uL (140-400) Neutrophils (%) (Auto) 66 % (31-73) Lymphocytes (%) (Auto) 26 % (24-48) Monocytes (%) (Auto) 7 % (0-9) Eosinophils (%) (Auto) 1 % (0-3) Basophils (%) (Auto) 1 % (0-3) Neutrophils # (Auto) 5.0 x10^3uL (1.8-7.7) Lymphocytes # (Auto) 2.0 x10^3/uL (1.0-4.8) Monocytes # (Auto) 0.5 x10^3/uL (0.0-1.1) Eosinophils # (Auto) 0.1 x10^3/uL (0.0-0.7) Basophils # (Auto) 0.1 x10^3/uL (0.0-0.2) Sodium Level 140 mmol/L (136-145) Potassium Level 3.9 mmol/L (3.5-5.1) Chloride Level 102 mmol/L (98-107) Carbon Dioxide Level 25 mmol/L (21-32) Anion Gap 13 (6-14) Blood Urea Nitrogen 9 mg/dL (8-26) Creatinine 1.1 mg/dL (0.7-1.3) Estimated GFR (Cockcroft-Gault) 78.6 BUN/Creatinine Ratio 8 (6-20) Glucose Level 86 mg/dL (70-99) Calcium Level 8.6 mg/dL (8.5-10.1) Total Bilirubin 0.5 mg/dL (0.2-1.0) Aspartate Amino Transferase (AST) 21 U/L (15-37) Alanine Aminotransferase (ALT) 29 U/L (16-63) Alkaline Phosphatase 58 U/L (46-116) Total Protein 7.3 g/dL (6.4-8.2) Albumin 4.9 g/dL (3.4-5.0) Albumin/Globulin Ratio 2.0 (1.0-1.7) H Influenza Type A (Rapid) Negative (NEGATIVE) Influenza Type B (Rapid) Negative (NEGATIVE) SARS-CoV-2 Antigen (Rapid) Negative (NEGATIVE) Vital Signs: Vital Signs Date Time Temp Pulse Resp B/P (MAP) Pulse Ox O2 Delivery O2 Flow Rate FiO2 08/23/21 13:36 99.2 101 18 147/75 (99) 96 EKG: EKG: [] Radiology/Procedures: Radiology/Procedures: [] Heart Score: C/O Chest Pain: N/A Risk Factors: Risk Factors: DM, Current or recent (<one month) smoker, HTN, HLP, family history of CAD, obesity. Risk Scores: Score 0 - 3: 2.5% MACE over next 6 weeks - Discharge Home Score 4 - 6: 20.3% MACE over next 6 weeks - Admit for Clinical Observation Score 7 - 10: 72.7% MACE over next 6 weeks - Early Invasive Strategies Course & Med Decision Making: Course & Med Decision Making Pertinent Labs and Imaging studies reviewed. (See chart for details) The patient's KUB shows constipation. I have recommended a bottle of magnesium citrate to clean the patient out. We have provided this medication to him. His labs are unremarkable. I did give him hydroxyzine for his anxiety. He is stable for discharge at this time. [] Dragon Disclaimer: Dragon Disclaimer: This electronic medical record was generated, in whole or in part, using a voice recognition dictation system. Departure Departure: Impression: Primary Impression: Constipation Additional Impression: Anxiety about health Disposition: HOME / SELF CARE / HOMELESS Condition: STABLE Referrals: PCP,NO (PCP) Patient Instructions: Constipation, Adult, [id number] CLIVE PONCE DO Aug 23, 2021 15:40
[2021-08-23] MEDS ORDERED: MAGNESIUM CITRATE 296 ML SOLUTION. PO ONE (16:00)
[2021-08-23 16:03] VITALS: BP 120/75
== END 2021-08-23 16:03 | disposition home or self-care (01) ==
LOC: ER 12:51
DX: K59.00 Constipation, unspecified (principal); F41.9 Anxiety disorder, unspecified; F17.210 Nicotine dependence, cigarettes, uncomplicated; Z88.0 Allergy status to penicillin; Z88.1 Allergy status to other antibiotic agents; Z88.8 Allergy status to other drugs, medicaments and biological substances
CPT/HCPCS: 36415; 74018; 80053; 81001; 85025; 87428; 96361; 96374; 99284; J2405; J7030

== ENCOUNTER 2021-12-20 21:49 | Emergency (ER) | payer SELFPAY | END 2021-12-20 22:00 | disposition left against medical advice (07) | LOC: ER 21:49 | DX: F10.239 Alcohol dependence with withdrawal, unspecified (principal); Z53.21 Procedure and treatment not carried out due to patient leaving prior to being seen by health care provider; Y90.9 Presence of alcohol in blood, level not specified ==

== ENCOUNTER 2021-12-23 22:47 | Emergency (ER) | payer SELFPAY ==
[~2021-12-23] VITALS: Ht 170.2 cm; Wt 65.0 kg
--- NOTE | 2021-12-23 23:23 | PHYS DOC ---
Past History Past Medical History: No Pertinent History, Other Additional Past Medical Histor: hx of methadone abuse; colitis, contact dermatitis Past Surgical History: No Surgical History Smoking: Cigarettes, Greater than 1 pack/day Alcohol Use: None Drug Use: Methamphetamine General Adult EDM: Chief Complaint: ABDOMINAL PAIN HPI: HPI: Patient is a 31-year-old male coming in for right lower quadrant pain. Patient states pain is gotten more severe today. Had similar pain in the past and says he was diagnosed with a small bowel obstruction. On further questioning patient was constipated and sent home with magnesium citrate. She denies any vomiting, 1 episode of diarrhea earlier today. No history of abdominal surgeries. Review of Systems: Review of Systems: All other systems within normal limits except for as noted in the HPI Allergies: Allergies: Allergies Coded Allergies Type Severity Reaction Last Updated Verified Penicillins Allergy Intermediate 08/11/21 Yes amoxicillin Allergy Intermediate 08/11/21 Yes azithromycin Allergy Intermediate 08/11/21 Yes promethazine Allergy Intermediate 08/11/21 Yes Physical Exam: PE: Constitutional: Well developed, well nourished, no acute distress, non-toxic appearance. [] HENT: Normocephalic, atraumatic, bilateral external ears normal, nose normal. [] Eyes: PERRLA, conjunctiva normal, no discharge. [] Neck: No rigidity, supple, no stridor. [] Cardiovascular: Regular rate and rhythm, brisk cap refill [] Lungs & Thorax: Non labored symmetric respirations, no tachypnea or respiratory distress [] Abdomen: Soft, nondistended, right lower quadrant pain Skin: Warm, dry, no erythema, no rash. [] Back: Unremarkable Extremities: No deformities, range of motion grossly intact, no lower extremity edema [] Neurologic: Alert and oriented X 3, no focal deficits noted. [] Psychologic: Affect normal, judgement normal, mood normal. [] EKG: EKG: [] Radiology/Procedures: Radiology/Procedures: [] CT scan reading: Mild bowel wall thickening involving small bowel in the right lower quadrant with adjacent inflammation along the right paracolic gutter. Consideration may be given for a presence of infectious/inflammatory etiology. Appendix is not definitively visualized and correlation with surgical history is recommended. Heart Score: C/O Chest Pain: No Risk Factors: Risk Factors: DM, Current or recent (<one month) smoker, HTN, HLP, family history of CAD, obesity. Risk Scores: Score 0 - 3: 2.5% MACE over next 6 weeks - Discharge Home Score 4 - 6: 20.3% MACE over next 6 weeks - Admit for Clinical Observation Score 7 - 10: 72.7% MACE over next 6 weeks - Early Invasive Strategies Course & Med Decision Making: Course & Med Decision Making Pertinent Labs and Imaging studies reviewed. (See chart for details) [] Dragon Disclaimer: Dragon Disclaimer: This electronic medical record was generated, in whole or in part, using a voice recognition dictation system. Departure Departure: Impression: Primary Impression: Enteritis Additional Impression: Hypokalemia Disposition: HOME / SELF CARE / HOMELESS Condition: STABLE Referrals: PCP,NO (PCP) Patient Instructions: Hypokalemia-Brief, Viral Gastroenteritis, [id number] Scripts Ibuprofen (IBUPROFEN) 600 Mg Tablet 600 MG PO PRN Q8HRS PRN for PAIN for 10 Days, #30 TAB Prov: MICHELE BENÍTEZ MD 12/24/21 Hydrocodone Bit/Acetaminophen (HYDROCODONE-APAP 5-325 ) 1 Each Tablet 1 TAB PO PRN Q6HRS PRN for PAIN for 3 Days, #12 TAB 0 Refills Prov: MICHELE BENÍTEZ MD 12/24/21 Potassium Chloride (POTASSIUM CHLORIDE ) 20 Meq Tablet.er 20 MEQ PO DAILY for SUPPLEMENT for 10 Days, #10 TAB Prov: MICHELE BENÍTEZ MD 12/24/21 MICHELE BENÍTEZ MD December 23, 2021 23:23
[2021-12-23 23:37] VITALS: BP 102/71
[2021-12-23] MEDS ORDERED: IV NORMAL SALINE 1,000ML 1,000 ML IV ONE (23:45)
[2021-12-23] MEDS ORDERED: ONDANSETRON PF 4 MG/2 ML VIAL. IVP ONE (23:45)
[2021-12-23] MEDS ORDERED: KETOROLAC 60 MG/2 ML VIAL. IM ONE (23:45)
[2021-12-23 23:54] LABS: BASO # 0.1 x10^3/uL (0.0-0.2); BASO % 1 % (0-3); EOS # 0.4 x10^3/uL (0.0-0.7); EOS % 4 % (0-3); HEMATOCRIT 40.8 % (39.0-53.0); HEMOGLOBIN 13.8 g/dL (13.0-17.5); LYMPH # 3.6 x10^3/uL (1.0-4.8); LYMPH % 32 % (24-48); MEAN CORPUSCULAR HEMOGLOBIN 30 pg (25-35); MEAN CORPUSCULAR HGB CONC 34 g/dL (31-37); MEAN CORPUSCULAR VOLUME 88 fL (79-100); MONO # 0.8 x10^3/uL (0.0-1.1); MONO % 7 % (0-9); NEUT # 6.2 x10^3uL (1.8-7.7); NEUT % 56 % (31-73); PLATELET COUNT 239 x10^3/uL (140-400); RED BLOOD COUNT 4.65 x10^6/uL (4.30-5.70); RED CELL DISTRIBUTION WIDTH 13.9 % (11.5-14.5); WHITE BLOOD COUNT 11.1 x10^3/uL (4.0-11.0)
[2021-12-24] MEDS ORDERED: KETOROLAC 15 MG/ML VIAL. IVP ONE
[2021-12-24 00:11] LABS: ALBUMIN 3.5 g/dL (3.4-5.0); ALBUMIN/GLOBULIN RATIO 1.1 (1.0-1.7); CALCIUM 8.6 mg/dL (8.5-10.1); CREATININE 0.7 mg/dL (0.7-1.3); GFR 131.5; TOTAL BILIRUBIN 0.4 mg/dL (0.2-1.0); TOTAL PROTEIN 6.6 g/dL (6.4-8.2)
[2021-12-24 00:12] LABS: POTASSIUM 2.8 mmol/L (3.5-5.1)
[2021-12-24] MEDS ORDERED: POTASSIUM CHLORIDE 20MEQ 100 ML IV ONE (00:15)
[2021-12-24 00:21] LABS: CLARITY,URINE CLEAR; COLOR,URINE YELLOW; GLUCOSE,URINE NEG (NEG); NITRITE,URINE NEG (NEG); UROBILINOGEN,URINE 0.2 mg/dL (0.2 mg/dL)
[2021-12-24 00:22] LABS: BACTERIA,URINE 0 /HPF (0-FEW); RBC,URINE OCC /HPF (0-2); SQUAMOUS EPITHELIAL CELL,UR FEW /LPF; WBC,URINE OCC /HPF (0-4)
[2021-12-24] MEDS ORDERED: POTA20TA4 PO (01:31)
[2021-12-24] MEDS ORDERED: HYDR-2155 PO (01:31)
[2021-12-24] MEDS ORDERED: IBUP600T16 PO (01:31)
[2021-12-24] MEDS ORDERED: HYDROcodone/APAP 5/325MG 1 TAB TABLET PO ONE (01:45)
--- NOTE | 2021-12-24 11:51 | RAD ---
PQRS Compliance Statement: One or more of the following individualized dose reduction techniques were utilized for this examinat ion: 1. Automated exposure control 2. Adjustment of the mA and/or kV according to patient size 3. Use of iterative reconstruction technique CT abdomen/pelvis without contrast 12/24/2021 INDICATION: History of abdominal pain, pancreatitis COMPARISON: CT abdomen/pelvis 07/29/2021 TECHNIQUE: Multiple axial CT images of the abdomen and pelvis were obtained without intravenous contr ast. Coronal and sagittal reformats are provided. FINDINGS: Lung bases are clear. Heart size within normal limits. Evaluation of solid abdominal viscera is limit ed by lack of intravenous contrast. Liver, spleen, adrenal glands, pancreas and gallbladder are daniela l in appearance. The abdominal aorta is normal in course and caliber. There are no pathologically enl arged lymph nodes in the abdomen and pelvis. There is no abdominal free fluid. There is no free intra peritoneal air. The kidneys are relatively symmetric in appearance. There is no suspicious renal mass within the limitations of a noncontrast examination. There is no hydronephrosis. There are no calcul i within the kidneys, ureters or urinary bladder. Urinary bladder is within normal limits in degree o f distention. Prostate and seminal vesicles are normal in appearance. There is mild colonic diverticu losis. Mild small bowel thickening identified in the right lower quadrant. There is minimal inflammat ion along the right paracolic gutter. The appendix is not definitively visualized. No dilated blind-e nding tubular structure is identified. No bowel obstruction. No suspicious osseous normality. No pelv ic mass. IMPRESSION: Mild bowel wall thickening involving the small bowel in the right lower quadrant with adjacent inflam mation along the right paracolic gutter. Consideration may be given for an resonance of infectious/in flammatory etiology. Appendix is not definitively visualized and correlation with surgical history is recommended. Electronically signed by: Jovita Hardin MD (12/24/2021 12:41 AM) [facility]
== END 2021-12-24 03:27 | disposition home or self-care (01) ==
LOC: ER 22:47
DX: K52.9 Noninfective gastroenteritis and colitis, unspecified (principal); E87.6 Hypokalemia; F17.210 Nicotine dependence, cigarettes, uncomplicated; F12.10 Cannabis abuse, uncomplicated
CPT/HCPCS: 36415; 74176; 80053; 81001; 83690; 85025; 96365; 96366; 96375; 99284; J1885; J3480; J7030

== ENCOUNTER 2021-12-28 20:14 | Emergency (ER) | payer SELFPAY ==
[~2021-12-28] VITALS: Ht 170.2 cm; Wt 66.0 kg
[~2021-12-28 20:14] MED LIST changes: +HYDR-2155 PO; +IBUP600T16 PO; +POTA20TA4 PO
[2021-12-28 21:38] LABS: BASO # 0.1 x10^3/uL (0.0-0.2); BASO % 1 % (0-3); EOS # 0.4 x10^3/uL (0.0-0.7); EOS % 4 % (0-3); HEMATOCRIT 43.9 % (39.0-53.0); HEMOGLOBIN 14.8 g/dL (13.0-17.5); LYMPH # 3.4 x10^3/uL (1.0-4.8); LYMPH % 35 % (24-48); MEAN CORPUSCULAR HEMOGLOBIN 30 pg (25-35); MEAN CORPUSCULAR HGB CONC 34 g/dL (31-37); MEAN CORPUSCULAR VOLUME 89 fL (79-100); MONO # 0.7 x10^3/uL (0.0-1.1); MONO % 7 % (0-9); NEUT % 52 % (31-73); PLATELET COUNT 253 x10^3/uL (140-400); RED BLOOD COUNT 4.96 x10^6/uL (4.30-5.70); RED CELL DISTRIBUTION WIDTH 14.1 % (11.5-14.5); WHITE BLOOD COUNT 9.5 x10^3/uL (4.0-11.0)
[2021-12-28 21:48] LABS: CALCIUM 8.8 mg/dL (8.5-10.1); CREATININE 0.9 mg/dL (0.7-1.3); GFR 98.4; POTASSIUM 3.2 mmol/L (3.5-5.1)
[2021-12-28 21:53] LABS: ALBUMIN 3.8 g/dL (3.4-5.0); ALBUMIN/GLOBULIN RATIO 1.2 (1.0-1.7); TOTAL BILIRUBIN 0.5 mg/dL (0.2-1.0)
[2021-12-28 21:58] LABS: BARBITURATES NEG (NEG); BENZODIAZEPINES NEG (NEG); CANNABINOIDS NEG (NEG); COCAINE NEG (NEG); METHADONE NEG (NEG); OPIATES POS (NEG); PHENCYCLIDINE NEG (NEG)
[2021-12-28 21:59] LABS: ETHANOL < 10 mg/dL (0-10); SALIC 2.6 mg/dL (2.8-20.0)
[2021-12-28 22:00] LABS: ACETAMIN < 2.0 mcg/mL (10-30)
[2021-12-28 22:00] LABS: AMPHETAMINE/METHAMPHETAMINE POS (NEG)
[2021-12-28 22:05] LABS: CLARITY,URINE CLEAR; COLOR,URINE YELLOW; GLUCOSE,URINE NEG (NEG)
[2021-12-28 22:06] LABS: BACTERIA,URINE 0 /HPF (0-FEW); NITRITE,URINE NEG (NEG); RBC,URINE 0 /HPF (0-2); UROBILINOGEN,URINE 0.2 mg/dL (0.2 mg/dL); WBC,URINE 0 /HPF (0-4)
--- NOTE | 2021-12-28 22:48 | PHYS DOC ---
Past History Past Medical History: No Pertinent History, Other Additional Past Medical Histor: hx of methadone abuse; colitis, contact dermatitis;miller depress dis;anti soc (ZELDA CODY DO) Past Surgical History: No Surgical History (ZELDA CODY DO) Smoking: Cigarettes, Greater than 1 pack/day Alcohol Use: Heavy Additional Alcohol Information: 2-3 quarts of whiskey per week Drug Use: Methamphetamine Social History Narrative: hx of methadone, opiate abuse (ZELDA CODY DO) Adult General Chief Complaint Chief Complaint: SUICIDAL IDEATION HPI HPI Patient is a 31-year-old male presenting to the emergency department for evaluation of suicidal ideation. He says that he took 12 hydrocodone's yesterday and attempt to kill himself however did not work but he says he is still suicidal and now he has plans to swallow razor blades. Patient is homeless and says that he feels that he is isolated and is getting no help. Patient is in no acute distress with normal vital signs and no medical complaints. (ZELDA CODY DO) Review of Systems Review of Systems Constitutional: Denies fever or chills [] Eyes: Denies change in visual acuity, redness, or eye pain [] HENT: Denies nasal congestion or sore throat [] Respiratory: Denies cough or shortness of breath [] Cardiovascular: No additional information not addressed in HPI [] GI: Denies abdominal pain, nausea, vomiting, bloody stools or diarrhea [] : Denies dysuria or hematuria [] Musculoskeletal: Denies back pain or joint pain [] Integument: Denies rash or skin lesions [] Neurologic: Denies headache, focal weakness or sensory changes [] Endocrine: Denies polyuria or polydipsia [] All other systems were reviewed and found to be within normal limits, except as documented in this note. (ZELDA CODY DO) Current Medications Current Medications Current Medications Medications (Trade) Dose Ordered Sig/Sukh Start Time Stop Time Status Last Admin Dose Admin Potassium Chloride (Klor-Con) 40 meq 1X ONCE 12/28/21 22:45 12/28/21 22:46 UNV (ZELDA CODY DO) Allergies Allergies Allergies Coded Allergies Type Severity Reaction Last Updated Verified Penicillins Allergy Intermediate 12/28/21 Yes amoxicillin Allergy Intermediate 12/28/21 Yes azithromycin Allergy Intermediate 12/28/21 Yes promethazine Allergy Intermediate 12/28/21 Yes (ZELDA CODY DO) Physical Exam Physical Exam Constitutional: Well developed, well nourished, no acute distress, non-toxic appearance. [] HENT: Normocephalic, atraumatic, bilateral external ears normal, oropharynx moist, no oral exudates, nose normal. [] Eyes: PERRLA, EOMI, conjunctiva normal, no discharge. [] Neck: Normal range of motion, no tenderness, supple, no stridor. [] Cardiovascular:Heart rate regular rhythm, no murmur [] Lungs & Thorax: Bilateral breath sounds clear to auscultation [] Abdomen: Bowel sounds normal, soft, no tenderness, no masses, no pulsatile masses. [] Skin: Warm, dry, no erythema, no rash. [] Back: No tenderness, no CVA tenderness. [] Extremities: No tenderness, no cyanosis, no clubbing, ROM intact, no edema. [] Neurologic: Alert and oriented X 3, normal motor function, normal sensory function, no focal deficits noted. [] Psychologic: Affect normal, judgement normal, mood normal. [] (ZELDA CODY DO) Current Patient Data Vital Signs Vital Signs Date Time Temp Pulse Resp B/P (MAP) Pulse Ox O2 Delivery O2 Flow Rate FiO2 12/28/21 20:54 98.6 99 20 129/82 (98) 98 Room Air Lab Results Laboratory Tests Test 12/28/21 21:03 12/28/21 21:10 12/28/21 21:30 SARS-CoV-2 Antigen (Rapid) Negative (NEGATIVE) White Blood Count 9.5 x10^3/uL (4.0-11.0) Red Blood Count 4.96 x10^6/uL (4.30-5.70) Hemoglobin 14.8 g/dL (13.0-17.5) Hematocrit 43.9 % (39.0-53.0) Mean Corpuscular Volume 89 fL (79-100) Mean Corpuscular Hemoglobin 30 pg (25-35) Mean Corpuscular Hemoglobin Concent 34 g/dL (31-37) Red Cell Distribution Width 14.1 % (11.5-14.5) Platelet Count 253 x10^3/uL (140-400) Neutrophils (%) (Auto) 52 % (31-73) Lymphocytes (%) (Auto) 35 % (24-48) Monocytes (%) (Auto) 7 % (0-9) Eosinophils (%) (Auto) 4 % (0-3) H Basophils (%) (Auto) 1 % (0-3) Neutrophils # (Auto) 5.0 x10^3uL (1.8-7.7) Lymphocytes # (Auto) 3.4 x10^3/uL (1.0-4.8) Monocytes # (Auto) 0.7 x10^3/uL (0.0-1.1) Eosinophils # (Auto) 0.4 x10^3/uL (0.0-0.7) Basophils # (Auto) 0.1 x10^3/uL (0.0-0.2) Sodium Level 139 mmol/L (136-145) Potassium Level 3.2 mmol/L (3.5-5.1) L Chloride Level 103 mmol/L (98-107) Carbon Dioxide Level 27 mmol/L (21-32) Anion Gap 9 (6-14) Blood Urea Nitrogen 11 mg/dL (8-26) Creatinine 0.9 mg/dL (0.7-1.3) Estimated GFR (Cockcroft-Gault) 98.4 BUN/Creatinine Ratio 12 (6-20) Glucose Level 86 mg/dL (70-99) Calcium Level 8.8 mg/dL (8.5-10.1) Total Bilirubin 0.5 mg/dL (0.2-1.0) Aspartate Amino Transferase (AST) 18 U/L (15-37) Alanine Aminotransferase (ALT) 25 U/L (16-63) Alkaline Phosphatase 81 U/L (46-116) Total Protein 7.0 g/dL (6.4-8.2) Albumin 3.8 g/dL (3.4-5.0) Albumin/Globulin Ratio 1.2 (1.0-1.7) Salicylates Level 2.6 mg/dL (2.8-20.0) L Salicylate Last Dose Date Salicylate Last Dose Time Acetaminophen Level < 2.0 mcg/mL (10-30) L Acetaminophen Last Dose Date Acetaminophen Last Dose Time Ethyl Alcohol Level < 10 mg/dL (0-10) Urine Collection Type Clean catch Urine Color Yellow Urine Clarity Clear Urine pH 6.0 Urine Specific Evans 1.015 Urine Protein Neg (NEG-TRACE) Urine Glucose (UA) Neg mg/dL (NEG) Urine Ketones (Stick) Neg mg/dL (NEG) Urine Blood Trace (NEG) Urine Nitrite Neg (NEG) Urine Bilirubin Neg (NEG) Urine Urobilinogen Dipstick 0.2 mg/dL (0.2 mg/dL) Urine Leukocyte Esterase Neg (NEG) Urine RBC 0 /HPF (0-2) Urine WBC 0 /HPF (0-4) Urine Squamous Epithelial Cells None /LPF Urine Bacteria 0 /HPF (0-FEW) Urine Opiates Screen Pos (NEG) Urine Methadone Screen Neg (NEG) Urine Barbiturates Neg (NEG) Urine Phencyclidine Screen Neg (NEG) Urine Amphetamine/Methamphetamine Pos (NEG) Urine Benzodiazepines Screen Neg (NEG) Urine Cocaine Screen Neg (NEG) Urine Cannabinoids Screen Neg (NEG) Urine Ethyl Alcohol Neg (NEG) (ZELDA CODY DO) EKG EKG [] (ZELDA CODY DO) Radiology/Procedures Radiology/Procedures [] (ZELDA CODY DO) Heart Score C/O Chest Pain: No Risk Factors: Risk Factors: DM, Current or recent (<one month) smoker, HTN, HLP, family history of CAD, obesity. Risk Scores: Risk Factors: DM, Current or recent (<one month) smoker, HTN, HLP, family history of CAD, obesity. (ZELDA CODY DO) Course & Med Decision Making Course & Med Decision Making Patient is cleared from a medical perspective. Potassium has been replaced. The PAT team will evaluate patient from a psychiatric perspective and then further disposition plan will be made. PAT team saw patient and stated that there are no facilities that are open and they will have to reassess the situation at 9:00 tomorrow morning and are thinking that possibly RSI will be a possibility but will reassess patient tomorrow morning. I will transfer care to Dr. Ponce at 0600. Final disposition plan pending but the patient continues to be medically cleared. (ZELDA CODY DO) Course & Med Decision Making The patient had no complications or problems during my shift. The behavioral health team is still working on placement. I am signing the patient out to the night assistant at [phone]. (CLIVE PONCE DO) Dragon Disclaimer Dragon Disclaimer This electronic medical record was generated, in whole or in part, using a voice recognition dictation system. (ZELDA CODY DO) Departure Departure: Impression: Primary Impression: Suicidal behavior Additional Impressions: Suicidal ideation Drug abuse [facility] Condition: STABLE Referrals: PCP,NO (PCP) Problem Qualifiers Primary Impression: Suicidal behavior Attempted self-injury: with attempted self-injury Qualified Codes: T14.91XA - Suicide attempt, initial encounter ZELDA CODY DO December 28, 2021 22:48 CLIVE PONCE DO December 29, 2021 17:52
[2021-12-28] MEDS ORDERED: POTASSIUM CHLORIDE 20 MEQ TABLET.ER. PO ONE (23:00)
[2021-12-29 23:00] VITALS: BP 109/63
== END 2021-12-30 14:50 ==
LOC: ER 20:14
DX: R45.851 Suicidal ideations (principal); F17.210 Nicotine dependence, cigarettes, uncomplicated; Z20.822 Contact with and (suspected) exposure to COVID-19
CPT/HCPCS: 80053; 80307; 80329; 81001; 85025; 87426; 99285; G0480; U0003